=== PATIENT | female | born 1995 | race Caucasian/White ===

== ENCOUNTER 2020-12-02 00:43 | Outpatient (CLI) | payer OTHER, SELFPAY ==
[2020-12-02 18:38] LABS: SARS-CoV-2 RNA PCR Negative
== END 2020-12-02 00:44 | disposition home or self-care (01) ==
LOC: ANHCOVIDDT 00:43
PROVIDERS: PCP Family Medicine; Visit Provider Student in an Organized Health Care Education/Training Program
DX: Z01.818 Encounter for other preprocedural examination (principal); Z20.828 Contact with and (suspected) exposure to other viral communicable diseases
CPT/HCPCS: C9803; U0003

== ENCOUNTER 2020-12-05 01:57 | Day surgery (SDC) | payer OTHER, SELFPAY ==
[2020-12-01 13:29] VITALS: BMI 27.8
--- NOTE | 2020-12-05 08:48 | PM.IMHP ---
H&P: HPI History of Present Illness Date/Time: 12/05/20 08:48 Chief Complaint: spontaneous Narrative: Isa Vora is a 25 year old female who presents for suction D&C for management of missed . Pt initially had pelvic US for viability that showed a gestational sac with no embryo or pole. hormone levels were being monitored and plan was for repeat US. Pt then started having bright red vaginal bleeding and passing large clots. Beta HCG levels were found to be over 55,000. Follow up US still showed an enlarged GS with no parts or embryo despite beta HCG levels. Pt was given management options and opted for surgical management via D&C. Review of Systems Cardiovascular: Cardiovascular: Denies chest pain, Denies leg edema, Denies palpitations, Denies dyspnea and Denies dyspnea on exertion Respiratory: Respiratory: Denies cough, Denies dyspnea and Denies dyspnea on exertion Gastrointestinal: Gastrointestinal: Denies abdominal pain, Denies constipation, Denies diarrhea, Denies nausea and Denies vomiting Genitourinary: Genitourinary: Denies hematuria, Denies urinary frequency, Denies dysuria, Denies pelvic pain, Denies urinary incontinence and Denies vaginal discharge Neurologic: Reports system reviewed and no additional complaints, except as documented Psychiatric: Psychiatric: Reports no additional psychiatric complaints Endocrine: Endocrine: Denies palpitations PMFSH Social History Social History Smoking packs per day: 0.5 Smoking cigarettes per day: 10.0 Years smoked: 1 Smoking pack-years: 0.50 Smoking status: Former smoker Smoking end date: 10/02/20 Alcohol intake: current Drinks per week: 6 Substance use: never Living arrangements: with family Additional living arrangements comments: [facility] Spiritual care concerns: No Meds Home Medications and Allergies Home Medications Medication Instructions Recorded Confirmed Type levothyroxine 88 mcg FEEDING TUBE QAM 12/01/20 12/01/20 History sertraline 100 mg PO QAM 12/01/20 12/01/20 History Allergies Allergy/AdvReac Type Severity Reaction Status Date / Time No Known Allergies Allergy Unverified 12/01/20 13:28 Exam Const: General: no acute distress Eyes: EOM: EOMs intact bilaterally Neck: Neck: supple Thyroid: thyroid normal Chest: Breast/axilla inspection: normal inspection of the breasts Breast/axilla palpation: normal palpation of the breasts, normal palpation of the axillae and no axillary lymphadenopathy Resp: Effort & Inspection: normal respiratory effort Auscultation: clear to auscultation bilaterally Cardio: Rate: regular rate Rhythm: regular rhythm GI: Inspection: non-distended GI Palp: Yes Soft to palpation, No Tenderness to palpation present (GI) and No Guarding due to palpation present (GI) Auscultation: normal bowel sounds : General: No bladder normal to palpation External Female Exam: normal external appearance Speculum Exam - Vagina: normal vaginal discharge and No vaginal bleeding Speculum Exam - Cervix: nontender Bimanual exam- vagina & uterus: No bladder normal to palpation and No Cervical tenderness present OB/external & speculum: No vaginal bleeding Skin: General skin exam: normal color and no rashes or lesions noted Neuro: Cognition (Neuro): normal cognition Speech: normal speech Extrem: General: normal to inspection and no edema Psych: Mental Status: mental status grossly normal Affect: normal affect Assessment and Plan Assessment and plan (1) Spontaneous : Code(s): O03.9 - Complete or unspecified spontaneous without complication Status: Acute Assessment and Plan: 25 yo with missed AB pelvic US showed GS with no embryo or pole beta HCG levels last 55,000 Rh + pt started having bright red bleeding and passing clots pt has been monitoring bleeding plan today for surgical manageme
--- NOTE | 2020-12-05 09:05 | WPDHPUPDATE1 ---
History and Physical Update Update Date/Time: 12/05/20 09:05 History and Physical has been reviewed, including an updated exam of the patient. There are NO changes in the patient's condition. Risks, benefits, and alternatives have been discussed and questions answered. Patient agrees to proceed with procedure.
[2020-12-05 12:07] VITALS: BP 130/68; PULSE 77; RESP 16; TEMP 37.4; O2SAT 100
--- NOTE | 2020-12-05 12:32 | WPDANESEPPF ---
Anes - Initial Pre Proc Eval Procedure: Operation Date: 12/05/20 14:00 Proposed Procedures p Suction Dilatation and Curettage - Slick Salazar MD Date/Time: 12/05/20 12:32 Surgeon: Slick Salazar MD Pre Op Diagnosis: incomplete AB Patient Data Age: 25 Gender: F Height: 1.73 m Weight: 83 kg Allergies Allergy/AdvReac Type Severity Reaction Status Date / Time No Known Allergies Allergy Unverified 12/05/20 12:15 Home Medications Medication Instructions Recorded Confirmed Type levothyroxine 88 mcg PO QAM 12/01/20 12/05/20 History sertraline 100 mg PO QAM 12/01/20 12/05/20 History -zjjl fum-folic ac-om3 1 pkg PO DAILY 12/05/20 12/05/20 History [One Daily ] Patient hx anesthesia problems: none Family hx anesthesia problems: none [facility] Past Medical History Medical History (Updated 12/05/20 @ 12:32 by Bharat Ward DO) Anxiety Hypothyroidism Social History Social History Smoking packs per day: 0.5 Smoking cigarettes per day: 10.0 Years smoked: 1 Smoking pack-years: 0.50 Smoking status: Former smoker Smoking end date: 10/02/20 Alcohol intake: current Drinks per week: 6 Substance use: never Living arrangements: with family Additional living arrangements comments: [facility] Spiritual care concerns: No Anes - Eval Final PreProcedure Day of Procedure 12/05/20 12:32 Patient weight: overweight Heart: regular rate and rhythm Lungs: clear to auscultation and normal air movement Airway: Mallampati scale class 1 Neurological: alert and oriented Last oral intake: >/= 8 hours ASA classification: II Emergent: no Anesthetic plan: proceed Anesthesia type and monitoring: general GIVS and standard monitoring Informed Consent: The patient's anesthetic plan and its attendant risks and benefits were discussed with the patient/family/POA. Questions were solicited and answers provided to the satisfaction of the patient/family/POA.
[2020-12-05] MEDS: ACETAMINOPHEN 500 MG TABLET 1000 MG PO (12:41)
[2020-12-05] MEDS: DOXYCYCLINE HYCLATE 100 MG TABLET PO (12:42)
[2020-12-05] MEDS: LACTATED RINGERS 1,000 ML 30 ML IV CONT (12:50)
[2020-12-05] MEDS: LIDOCAINE HCL 1% LOCAL INJ 20 ML VIAL 10 ML INFILTRATE (13:38)
[2020-12-05] MEDS: KETOROLAC 30 MG/ML VIAL (*BKC) IV PUSH (13:40)
--- NOTE | 2020-12-05 13:49 | PM.PROC ---
Procedure Note - Detailed Date of procedure: 12/05/20 Pre-op diagnosis: incomplete AB Post-op diagnosis: same Procedure performed: Suction dilation and curettage Description of procedure: Antibiotics: Doxycycline Findings: uterus equal to dates, cervix not dilated, intrauterine MAB Complications: none Specimens: endometrial contents- products of conception EBL: 100 mL Indications: Patients was found to have an intrauterine MAB on pelvic US. After one weekend of expectant management the patient had not passed and POC. She elected for surgical management via Suction D&C. Procedure: The patient was taken to the operating room after a missed had been noted on on transvaginal ultrasound. Repeat bedside US confirmed an intrauterine missed . The risks, benefits and alternatives of the procedure were reviewed with the patient and informed consent was obtained. The patient was taken to the OR and anesthesia was noted to be adequate. The patient was placed in the dorsolithotomy position. Pelvic exam was performed with findings noted above. The patient was prepped and draped in the usual sterile fashion. Sterile speculum was placed in the vagina and the cervix was grasped with an Tenaculum clamp. Paracervical block was performed with 1% lidocaine. The cervix was dilated further to allow for passage of a 8mm suction curette. The 8mm suction curette was gently advanced to the fundus, suction was activated, and the tip was rotated while being withdrawn to clear the uterus of products. This suction process was repeated 4 additional times due to the quantity of material in the uterus. The sharp curette was introduced and advanced to the fundus to remove any remaining products. The suction curette was reintroduced one final time to ensure all products had been removed. The Tenaculum clamp was removed. Good hemostasis was noted. Instrument, sponge, and sharp counts were correct. Patient tolerated the procedure well and was taken to the recovery room in stable condition. Surgeon: Slick Salazar MD Estimated blood loss (mL): 100 Urine output (mL): 100 Drains: No Packing: No Pathology: yes (products of conception ) Complications: No immediate complications Condition: stable Disposition: PACU
[2020-12-05 13:50] VITALS: BP 123/66; PULSE 76; RESP 16; O2SAT 99
[2020-12-05] MEDS: fentaNYL CITRATE INJ (*CRX) 100 MCG/2 ML VIAL 25 MCG IV PUSH (13:56)
[2020-12-05 14:20] VITALS: BP 117/71; PULSE 78; RESP 18
[2020-12-05 14:38] VITALS: BP 116/69; PULSE 72; RESP 18
--- NOTE | 2020-12-05 14:53 | SUR.PHASEII ---
DR. SARKAR SPOKE WITH PATIENT AFTER SURGERY BUT SHE DIDN'T REMEMBER THE CONVERSATION. DR. SARKAR CALLED; HE WILL CALL HER LATER TODAY AND WILL CALL IN A PRESCRIPTION FOR THE 2ND DOXYCYCLINE DOSE.
== END 2020-12-05 14:47 | disposition home or self-care (01) ==
PROVIDERS: PCP Family Medicine; Visit Provider Student in an Organized Health Care Education/Training Program
PROC: (CPT 59812; principal; 2020-12-05 14:00)
DX: O03.4 Incomplete spontaneous abortion without complication (principal); E03.9 Hypothyroidism, unspecified; F41.9 Anxiety disorder, unspecified; Z87.891 Personal history of nicotine dependence
CPT/HCPCS: 59812; 88305; A9270; J1885; J2250; J2405; J2704; J3010; J7120

== ENCOUNTER 2021-04-28 09:52 | Emergency (ER) | payer OTHER, SELFPAY ==
[2021-04-28] VITALS (12 sets, daily range): BP systolic 124–143; BP diastolic 71–80; PULSE 66–88; RESP 12–21; O2SAT 100
--- NOTE | ~2021-04-28 | XR_ITS ---
EXAMINATION: XR chest 2V DATE: 04/28/2021 11:31 INDICATION: Chest tightness. Shallow breathing. TECHNIQUE: PA and lateral views of the chest were obtained. COMPARISON: Chest radiograph dated 05/13/2018 FINDINGS: The lungs remain clear with no focal airspace opacities, pulmonary edema, pleural effusion or pneumot horax. The cardiomediastinal silhouette is normal. Mild midthoracic spondylosis. IMPRESSION: 1. No acute cardiopulmonary disease. Reviewed, dictated and finalized at location [facility].
--- NOTE | 2021-04-28 11:05 | ECG_ITS ---
Measurements Intervals [place] Rate: 81 P: 56 TN: 137 QRS: 75 QRSD: 94 T: 23 QT: 319 QTc: 372 Interpretive Statements SINUS RHYTHM VENTRICULAR PREMATURE COMPLEX INCOMPLETE RIGHT BUNDLE BRANCH BLOCK NONSPECIFIC T-WAVE ABNORMALITY- INFERIOR LEADS BASELINE ARTIFACT- I, II, III, AVR, AVL, AVF BORDERLINE ECG Electronically Signed On 04-28-2021 12:17:00 CDT by Den Mcgee D.O.
[2021-04-28] MEDS: MAG HYDROX/AL HYDROX/SIMETH 30 ML UDC PO (11:17)
[2021-04-28 11:19] LABS: Basophils Absolute Auto 0.1 K/mm3 (0.0-0.1); Basophils Percent Auto 0.5 % (0.2-1.2); Eosinophils Absolute Auto 0.5 K/mm3 (0-0.3); Eosinophils Percent Auto 4.7 % (0-4.4); Hematocrit 41.2 % (37.0-47.0); Hemoglobin 13.7 g/dL (12.0-15.0); Immature Granulocyte Absolute 0.04 K/mm3 (0.00-0.031); Immature Granulocyte Percent A 0.4 % (0-0.5); Lymphocytes Absolute Auto 1.39 K/mm3 (0.9-3.2); Lymphocytes Percent Auto 13.3 % (18.3-44.2); Mean Corpuscular HGB Conc 33.3 g/dl (32-36); Mean Corpuscular Hemoglobin 31.4 pg (26-34); Mean Corpuscular Volume 94.5 fl (80-100); Mean Platelet Volume 11.8 fl (7.4-10.4); Monocytes Absolute Auto 0.9 K/mm3 (0.1-0.6); Monocytes Percent Auto 8.3 % (2.6-8.5); Neutrophils Absolute Auto 7.6 K/mm3 (1.3-6.7); Neutrophils Percent Auto 72.8 % (45.5-73.1); Platelet Count Result 206 k/mm3 (150-375); Red Blood Count 4.36 M/mm3 (4.2-5.4); Red Cell Distribution Width 12.9 % (11.5-14.5); White Blood Count 10.5 K/mm3 (4.5-10.0)
[2021-04-28] MEDS: LIDOCAINE HCL 2% VISC SOLN 15 ML UDC 20 ML PO (11:19)
[2021-04-28] MEDS: PANTOPRAZOLE SODIUM IV 40 MG VIAL IV PUSH (11:21)
[2021-04-28 11:27] LABS: Prothrombin Time 13.6 Seconds (11.1-14.7)
[2021-04-28 11:28] LABS: Partial Thromboplastin Time 28.2 SECONDS (22.3-36.8)
[2021-04-28 11:29] LABS: Alanine Aminotransferase 15 U/L (4-35); Albumin Level 4.8 g/dL (3.5-5.1); Alkaline Phosphatase 83 U/L (38-126); Anion Gap 10 mmol/L (8-16); Aspartate Amino Transferase 30 U/L (14-36); Bilirubin,Total 0.6 mg/dL (0.2-1.3); Blood Urea Nitrogen 9 mg/dL (7-17); Calcium 9.4 mg/dL (8.4-10.2); Carbon Dioxide 26 mmol/L (22-30); Chloride 103 mmol/L (98-107); Estimated CRCL calculation 93 ml/min; Estimated Glomerular Filt Rate > 60; Glucose 99 mg/dL (65-105); Potassium 3.5 mmol/L (3.4-5.0); Sodium 139 mmol/L (137-145)
[2021-04-28 11:39] LABS: Troponin I < 0.012 ng/mL (0.000-0.034)
[2021-04-28] MEDS: KETOROLAC 30 MG/ML VIAL (*BKC) IV PUSH (13:50)
--- NOTE | 2021-04-28 14:05 | ED.CHESTPAIN ---
HPI - Chest Pain General Chief Complaint: Chest Pain Stated Complaint: cp Time Seen by Provider: 04/28/21 10:57 Source: patient and RN notes reviewed Mode of arrival: ambulatory Limitations: no limitations History of Present Illness HPI narrative: Patient is a 75-year-old female who presents to emergency department for evaluation of mid chest discomfort described as a sharp stabbing pain that began this morning patient notes aching pain worse with inspiration and feeling short of breath patient notes she has had history of reflux for which she takes Zantac she took this morning with no relief patient denies other symptoms or complaints other than some mild discomfort in the abdomen Related Data Home Medications Medication Instructions Recorded Confirmed levothyroxine 88 mcg PO QAM 12/01/20 12/05/20 sertraline 100 mg PO QAM 12/01/20 12/05/20 One Daily 1 pkg PO DAILY 12/05/20 12/05/20 Allergies Allergy/AdvReac Type Severity Reaction Status Date / Time No Known Allergies Allergy Unverified 04/28/21 11:13 Review of Systems Review of Systems: All systems reviewed & are unremarkable except as noted in HPI and below PMFSH Past Medical History Medical History Anxiety Hypothyroidism Social History Social History Smoking packs per day: 0.5 Smoking cigarettes per day: 10.0 Years smoked: 1 Smoking pack-years: 0.50 Smoking status: Former smoker Smoking end date: 10/02/20 Alcohol intake: current Drinks per week: 6 Substance use: never [facility] Spiritual care concerns: No Exam Narrative: Exam Narrative: GENERAL: Well-appearing, well-nourished, and in no acute distress. HEAD: Normocephalic, atraumatic. EYES: PERRLA and EOMI. ENT: Nares clear, no rhinorrhea or epistaxis. Mucous membranes moist. CHEST: Clear to auscultation. No respiratory distress. No wheezes rales or rhonchi HEART: Regular rate and rhythm. No murmur heard. Normal peripheral pulses. ABDOMEN: Soft, nontender, nondistended. EXTREMITIES: Normal range of motion. No edema. SKIN: Warm, dry, no rash. NEURO: No focal deficits. Alert and oriented x3. PSYCH: Normal mood and affect. Course Course Emergency Course: Patient evaluated for chest pain no high risk changes in the evaluation did have some improvement with Protonix and GI cocktail potentially suggesting a GI component with history of reflux to support this patient low risk for cardiac risk factors will be discharged with primary referral and GI consult provided with reasons to return patient feels comfortable with this plan Vital Signs Vital signs: Vital Signs Pulse Rate 77 04/28/21 09:56 Respiratory Rate 19 04/28/21 09:56 Blood Pressure 143/77 H 04/28/21 09:56 Pulse Oximetry 100 04/28/21 09:56 Pulse Rate 67 04/28/21 13:01 Respiratory Rate 21 H 04/28/21 13:01 Blood Pressure 128/80 04/28/21 13:00 Pulse Oximetry 100 04/28/21 09:56 MDM - Chest Pain MDM Narrative Medical decision making narrative: Patients EKGs and labs are without significant high risk changes. Cardiac risk factors were reviewed. Patient is felt likely to be low risk for ACS and reasonable for further risk stratification testing as an outpatient. Pain was not sudden or maximal in onset without tearing or ripping. quality. No other signs or symptoms to suggest aortic dissection. A low-risk Wells criteria is noted. PE is felt to be unlikely. No pneumonia or URI symptoms were seen on evaluation today. Patient is felt to b reasonable for continued evaluation as an outpatient. Lab Data Result diagrams: 04/28/21 11:11 04/28/21 11:11 Labs: Lab Results 04/28/21 04/28/21 04/28/21 Range/Units 11:11 11:11 11:11 WBC 10.5 H (4.5-10.0) K/mm3 RBC 4.36 (4.2-5.4) M/mm3 Hgb 13.7 (12.0-15.0) g/dL Hct 41.2 (37.0-47.0) % MCV 94.5 (80-
[2021-04-28 14:06] LABS: Troponin I < 0.012 ng/mL (0.000-0.034)
== END 2021-04-28 14:53 | disposition home or self-care (01) ==
PROVIDERS: Emergency Medicine Emergency Medical Services; Emergency Provider Emergency Medicine; PCP Family Medicine
DX: R07.89 Other chest pain (principal); F41.9 Anxiety disorder, unspecified; E03.9 Hypothyroidism, unspecified; Z87.891 Personal history of nicotine dependence; I49.3 Ventricular premature depolarization; I45.10 Unspecified right bundle-branch block; R94.31 Abnormal electrocardiogram [ECG] [EKG]
CPT/HCPCS: 36415; 71046; 80053; 84484; 85025; 85610; 85730; 93005; 96374; 96375; 99284; A9270; C9113; J1885

== ENCOUNTER 2021-12-22 11:14 | Outpatient (CLI) | payer OTHER, SELFPAY ==
--- NOTE | ~2021-12-22 | XR_ITS ---
XR hysterosalpingogram DATE: 12/22/2021 12:21 INDICATION: Infertility workup TECHNIQUE: Fluoroscopy and spot images were performed during a hysterosalpingogram procedure performe d by Dr. Salazar. 0.4 minutes fluoroscopy time 4. Images COMPARISON: None FINDINGS: Normally shaped uterine cavity and normal caliber of the fallopian tubes. There is bilatera l fallopian tube patency and peritoneal spillage IMPRESSION: Normal hysterosalpingogram Reviewed, dictated and finalized at [facility]. Reviewed, dictated and finalized at location [facility]. DRIVER HELPER IMPRESSION: Normal hysterosalpingogram
== END 2021-12-22 11:15 | disposition home or self-care (01) ==
PROVIDERS: PCP Family Medicine; Visit Provider Student in an Organized Health Care Education/Training Program
DX: N97.9 Female infertility, unspecified (principal)
CPT/HCPCS: 58340; 74740; Q9966

== ENCOUNTER 2022-02-14 09:00 | Emergency (ER) | payer OTHER, BC, SELFPAY ==
[2022-02-14 09:06] VITALS: BP 144/75; PULSE 86; RESP 20; TEMP 37.5; O2SAT 99
--- NOTE | 2022-02-14 09:14 | ED.NAVMDI ---
HPI - Nausea/Vomiting/Diarrhea General Chief complaint: Nausea/Vomiting/Diarrhea Stated complaint: Dehydration during Time Seen by Provider: 02/14/22 09:02 History of Present Illness HPI Narrative: 26-year-old female who is 8 weeks presents the emergency room with vomiting. Patient states that she has experienced intermittent nausea and vomiting for the past 6 weeks. Patient is under the care of an GIS SOFTWARE ENGINEER, and has been unsuccessfully taking Zofran and promethazine for her symptoms. Patient denies abdominal pain, denies fever, denies vaginal bleeding. Related Data Home Medications Medication Instructions Recorded Confirmed levothyroxine 88 mcg PO QAM 12/01/20 12/05/20 sertraline 100 mg PO QAM 12/01/20 12/05/20 One Daily 1 pkg PO DAILY 12/05/20 12/05/20 Allergies Allergy/AdvReac Type Severity Reaction Status Date / Time No Known Allergies Allergy Verified 02/14/22 09:09 Review of Systems Review of Systems: CONSTITUTIONAL: Denies fever, chills, or sweats. EYES: Denies visual changes, redness, or discharge. ENT: Denies rhinorrhea, congestion, sore throat, or otalgia. CARDIOVASCULAR: Denies chest pain, palpitations, or edema. RESPIRATORY: Denies cough or dyspnea. GASTROINTESTINAL: Denies abdominal pain and diarrhea. Reports nausea and vomiting GENITOURINARY: Denies dysuria or hematuria. SKIN: Denies rash or itching. MUSCULOSKELETAL: Denies back pain, joint pain, or myalgia. NEUROLOGIC: Denies headache, numbness, dizziness, or weakness. PSYCHIATRIC: Denies anxiety or depression. PMFSH Past Medical History Medical History Anxiety Hypothyroidism Social History Social History Smoking packs per day: 0.5 Smoking cigarettes per day: 10.0 Years smoked: 1 Smoking pack-years: 0.50 Smoking status: Former smoker Smoking end date: 10/02/20 Alcohol intake: current Drinks per week: 6 Substance use: never Additional living arrangements comments: [facility] Spiritual care concerns: No Exam Narrative: GENERAL: Well-appearing, well-nourished, and in no acute distress. HEAD: Normocephalic, atraumatic. EYES: PERRLA and EOMI. ENT: Nares clear, no rhinorrhea or epistaxis. Mucous membranes dry. Oropharynx without tonsillar hypertrophy exudate or other lesions. Bilateral TMs pearly ling nonbulging NECK: Supple. No adenopathy or masses. No carotid bruits or JVD CHEST: Clear to auscultation. No respiratory distress. No wheezes rales or rhonchi HEART: Regular rate and rhythm. No murmur heard. Normal peripheral pulses. ABDOMEN: Soft, nontender, nondistended, normal active bowel sounds. EXTREMITIES: Normal range of motion. No edema. SKIN: Warm, dry, no rash. NEURO: No focal deficits. Alert and oriented x3. PSYCH: Normal mood and affect. Course Vital Signs Vital signs: Vital Signs Temperature 37.5 C 02/14/22 09:06 Pulse Rate 86 02/14/22 09:06 Respiratory Rate 20 02/14/22 09:06 Blood Pressure 144/75 H 02/14/22 09:06 Pulse Oximetry 99 02/14/22 09:06 Temperature 37.6 C H 02/14/22 10:08 Pulse Rate 62 02/14/22 10:08 Respiratory Rate 16 02/14/22 10:08 Blood Pressure 116/73 02/14/22 10:08 Pulse Oximetry 100 02/14/22 10:08 MDM - Nausea/Vomiting/Diarrhea MDM Narrative Medical decision making narrative: 26-year-old female presented the emergency room complaining of nausea vomiting. Patient is 8 weeks stating that she has had vomiting for the past 6 weeks intermittently. Patient was given 2 L of fluid and some Zofran, and states that her symptoms have largely resolved. We will have patient follow-up with her GIS SOFTWARE ENGINEER tomorrow. CBC and CMP were unremarkable. Urinalysis shows no concerns for urinary tract infection. Patient is likely experiencing hyperemesis due to . Medical Records Attestation: I reviewed the patient's medic
[2022-02-14 09:42] LABS: Basophils Percent Auto 0.4 % (0.2-1.2); Eosinophils Absolute Auto 0.5 K/mm3 (0-0.3); Eosinophils Percent Auto 5.8 % (0-4.4); Hemoglobin 12.9 g/dL (12.0-15.0); Immature Granulocyte Absolute 0.02 K/mm3 (0.00-0.031); Immature Granulocyte Percent A 0.3 % (0-0.5); Lymphocytes Absolute Auto 1.39 K/mm3 (0.9-3.2); Lymphocytes Percent Auto 17.4 % (18.3-44.2); Mean Corpuscular HGB Conc 33.9 g/dl (32-36); Mean Corpuscular Hemoglobin 31.5 pg (26-34); Mean Corpuscular Volume 92.7 fl (80-100); Mean Platelet Volume 11.6 fl (7.4-10.4); Monocytes Absolute Auto 0.7 K/mm3 (0.1-0.6); Monocytes Percent Auto 9.3 % (2.6-8.5); Neutrophils Absolute Auto 5.4 K/mm3 (1.3-6.7); Neutrophils Percent Auto 66.8 % (45.5-73.1); Platelet Count Result 222 k/mm3 (150-375); Red Cell Distribution Width 12.4 % (11.5-14.5)
[2022-02-14 09:48] LABS: Add Urine Microscopic? YES; Appearance Urine Cloudy (Clear); Bacteria Urine Trace /hpf; Bilirubin Urine 1+ (Negative); Blood Urine Negative (Negative); Color Urine Amber (Yellow); Glucose Urine UA Negative (Negative); Ketones Urine Trace mg/dL (Negative); Leukocyte Esterase Ur Negative LEU/UL (Negative); Mucus Urine Heavy /lpf; Nitrate Urine Negative (Negative); Protein Urine 2+ mg/dL (Negative); Squamous Epithelial Cell Urine Many /hpf (Few)
[2022-02-14 09:49] LABS: Specific Grav Ur 1.033 (1.001-1.035)
[2022-02-14] MEDS: ONDANSETRON INJ 4 MG/2 ML VIAL IV PUSH (09:51)
[2022-02-14] MEDS: SODIUM CHLORIDE 0.9% IV 1,000 ML 999 ML IV CONT ×2 (09:51→11:09)
[2022-02-14 09:53] LABS: Alanine Aminotransferase 17 U/L (4-35); Albumin Level 4.6 g/dL (3.5-5.1); Alkaline Phosphatase 54 U/L (38-126); Anion Gap 9 mmol/L (8-16); Aspartate Amino Transferase 25 U/L (14-36); Bilirubin,Total 0.4 mg/dL (0.2-1.3); Blood Urea Nitrogen 10 mg/dL (7-17); Calcium 9.3 mg/dL (8.4-10.2); Carbon Dioxide 26 mmol/L (22-30); Chloride 102 mmol/L (98-107); Estimated CRCL calculation 104 ml/min; Estimated Glomerular Filt Rate > 60; Glucose 94 mg/dL (65-110); Potassium 3.7 mmol/L (3.4-5.0); Sodium 137 mmol/L (137-145)
[2022-02-14 10:08] VITALS: BP 116/73; PULSE 62; RESP 16; TEMP 37.6; O2SAT 100
[2022-02-14 12:04] VITALS: BP 120/62; PULSE 81; RESP 16; O2SAT 100
== END 2022-02-14 12:30 | disposition home or self-care (01) ==
PROVIDERS: Emergency Provider Nurse Practitioner Family; PCP Family Medicine
DX: O21.0 Mild hyperemesis gravidarum (principal); Z3A.08 8 weeks gestation of pregnancy
CPT/HCPCS: 36415; 80053; 81001; 85025; 96361; 96374; 99284; J2405; J7030

== ENCOUNTER 2022-06-21 09:32 | Observation (INO) | payer OTHER, BC, SELFPAY ==
[2022-06-21] VITALS (10 sets, daily range): BP systolic 107–129; BP diastolic 54–73; PULSE 76–94; TEMP 36.4; BMI 29.2
--- NOTE | 2022-06-21 10:05 | OBADM ---
This patient, Isa Vora, admitted to the OB room 116 for observation for c/o feeling lightheaded, dizzy, weak, and shaking knees with walking since yesterday. Patient/family oriented to hospital policies and general routines including ID bracelet, bed and alarms, visiting hours, pain management, procedures, bathroom and other care routines, personal items, smoking policy, room service/diet, and visiting hours. Patient/Family are encouraged to report perceived risks to care and to ask questions if they do not understand what they are told or what they should do.
[2022-06-21] MEDS: DEXTROSE 5%/LACTATED RINGERS 1,000 ML 999 ML IV CONT (10:30)
[2022-06-21 10:44] LABS: Basophils Percent Auto 0.2 % (0.2-1.2); Eosinophils Absolute Auto 0.5 K/mm3 (0-0.3); Eosinophils Percent Auto 3.7 % (0-4.4); Hematocrit 33.7 % (37.0-47.0); Hemoglobin 11.2 g/dL (12.0-15.0); Immature Granulocyte Absolute 0.09 K/mm3 (0.00-0.031); Immature Granulocyte Percent A 0.7 % (0-0.5); Lymphocytes Absolute Auto 1.38 K/mm3 (0.9-3.2); Lymphocytes Percent Auto 10.7 % (18.3-44.2); Mean Corpuscular HGB Conc 33.2 g/dl (32-36); Mean Corpuscular Volume 93.4 fl (80-100); Mean Platelet Volume 11.2 fl (7.4-10.4); Monocytes Absolute Auto 0.8 K/mm3 (0.1-0.6); Monocytes Percent Auto 6.1 % (2.6-8.5); Neutrophils Absolute Auto 10.2 K/mm3 (1.3-6.7); Neutrophils Percent Auto 78.6 % (45.5-73.1); Platelet Count Result 187 k/mm3 (150-375); Red Blood Count 3.61 M/mm3 (4.2-5.4); Red Cell Distribution Width 13.1 % (11.5-14.5); White Blood Count 12.9 K/mm3 (4.5-10.0)
[2022-06-21 10:49] LABS: Appearance Urine Cloudy (Clear); Bilirubin Urine Negative (Negative); Color Urine Yellow (Yellow); Glucose Urine UA Negative (Negative); Ketones Urine Trace mg/dL (Negative); Leukocyte Esterase Ur Negative LEU/UL (NEGATIVE); Nitrate Urine Negative (Negative); Protein Urine 1+ mg/dL (Negative); Specific Grav Ur >= 1.030 (1.001-1.035); Urobilinogen Urine 0.2 mg/dL (<2.0)
[2022-06-21 10:53] LABS: Alanine Aminotransferase 14 U/L (6-35); Albumin Level 3.7 g/dL (3.5-5.1); Alkaline Phosphatase 77 U/L (38-126); Anion Gap 7 mmol/L (8-16); Aspartate Amino Transferase 20 U/L (14-36); Bilirubin,Total 0.4 mg/dL (0.2-1.3); Blood Urea Nitrogen 6 mg/dL (7-17); Calcium 8.4 mg/dL (8.4-10.2); Carbon Dioxide 22 mmol/L (22-30); Chloride 106 mmol/L (98-107); Estimated Glomerular Filt Rate > 60; Glucose 83 mg/dL (65-110); Potassium 3.8 mmol/L (3.4-5.0); Sodium 135 mmol/L (137-145)
[2022-06-21 10:53] LABS: Add Urine Microscopic? YES; Blood Urine Trace-Intact (Negative)
--- NOTE | 2022-06-21 11:36 | P.PNOB_ITS ---
OB - Triage/Final Diagnosis Visit Information Date of evaluation: 06/21/22 Reason for evaluation: other (fatigue, weakness) Comments/Additional reasons for admission: I have assessed the risk for this patient, Isa Izzy Ryanmaikel, and determined that she would benefit from observation care. Evaluation Laboratory results: Laboratory Tests 06/21/22 06/21/22 06/21/22 10:22 10:22 10:36 WBC 12.9 H RBC 3.61 L Hgb 11.2 L Hct 33.7 L MCV 93.4 MCH 31.0 MCHC 33.2 RDW 13.1 Plt Count 187 MPV 11.2 H Immature Gran % (Auto) 0.7 H Neut % (Auto) 78.6 H Lymph % (Auto) 10.7 L [place] % (Auto) 6.1 Eos % (Auto) 3.7 Baso % (Auto) 0.2 Lymph # (Auto) 1.38 [place] # (Auto) 0.8 H Eos # (Auto) 0.5 H Baso # (Auto) 0.0 Abs Immat Gran (auto) 0.09 H Absolute Neuts (auto) 10.2 H Absolute Nucleated RBC 0.0 Nucleated RBC % 0.0 Sodium 135 L Potassium 3.8 Chloride 106 Carbon Dioxide 22 Anion Gap 7 L BUN 6 L Creatinine 0.50 L Estim Creat Clear Calc Not Reportable Estimated GFR > 60 Glucose 83 Calcium 8.4 Total Bilirubin 0.4 AST 20 ALT 14 Alkaline Phosphatase 77 Total Protein 7.0 Albumin 3.7 TSH 3.070 Urine Color Yellow Urine Appearance Cloudy H Urine pH 6.0 Ur Specific [place] >= 1.030 Urine Protein 1+ H Urine Glucose (UA) Negative Urine Ketones Trace Ur Blood (Man) Trace-intact Urine Nitrate Negative Urine Bilirubin Negative Urine Urobilinogen 0.2 Ur Leukocyte Esterase Negative Vital signs: Vital Signs - 24 hr 06/21/22 10:04 06/21/22 10:16 06/21/22 10:30 Pulse Rate 87 94 85 Blood Pressure 121/66 107/65 116/71 Oxygen Delivery 06/21/22 10:46 06/21/22 11:01 06/21/22 11:16 Pulse Rate 82 80 81 Blood Pressure 121/64 118/65 129/54 L Oxygen Delivery 06/21/22 11:25 06/21/22 11:26 06/21/22 11:27 Pulse Rate 76 80 81 Blood Pressure 124/70 121/73 122/65 Oxygen Delivery 06/21/22 10:05 Pulse Rate Blood Pressure Oxygen Delivery Room Air
[2022-06-21 11:51] LABS: Squamous Epithelial Cell Urine Many /hpf (Few)
[2022-06-21 11:52] LABS: Calcium Oxalate Crystals Urine Present /hpf
[2022-06-21 11:53] LABS: Mucus Urine Rare /lpf
[2022-06-21 11:54] LABS: Bacteria Urine Trace /hpf
== END 2022-06-21 12:16 | disposition home or self-care (01) ==
PROVIDERS: Admitting Provider Student in an Organized Health Care Education/Training Program; PCP Family Medicine; Visit Provider Student in an Organized Health Care Education/Training Program
DX: O26.812 Pregnancy related exhaustion and fatigue, second trimester (principal); Z3A.26 26 weeks gestation of pregnancy
CPT/HCPCS: 36415; 80053; 81001; 84443; 85025; 96361; 96365; G0378; G0379; J7121

== ENCOUNTER 2022-07-27 12:12 | Observation (INO) | payer OTHER, BC, SELFPAY ==
[2022-07-27 12:42] VITALS: BP 122/74; PULSE 105; TEMP 37.2
[2022-07-27 12:57] VITALS: BMI 30.8
--- NOTE | 2022-07-27 12:57 | OBADM ---
This patient, Isa Vora, admitted to the OB room OB Post 112 for observation. Patient/family oriented to hospital policies and general routines including ID bracelet, bed and alarms, visiting hours, pain management, procedures, bathroom and other care routines, personal items, smoking policy, room service/diet, and visiting hours. Patient/Family are encouraged to report perceived risks to care and to ask questions if they do not understand what they are told or what they should do.
[2022-07-27 13:01] VITALS: BP 118/67; PULSE 91
[2022-07-27 13:14] LABS: Appearance Urine Slightly Cloudy (Clear); Bilirubin Urine Negative (Negative); Blood Urine Negative (Negative); Color Urine Yellow (Yellow); Glucose Urine UA Negative (Negative); Ketones Urine Negative (Negative); Leukocyte Esterase Ur Negative LEU/UL (Negative); Nitrate Urine Negative (Negative); Protein Urine Negative (Negative); Specific Grav Ur 1.015 (1.001-1.035); Urobilinogen Urine 0.2 mg/dL (<2.0)
[2022-07-27 13:29] LABS: Bacteria Urine Trace /hpf; Mucus Urine Rare /lpf; RBC Urine 0-2 /hpf (0-2); Squamous Epithelial Cell Urine Many /hpf (Few)
[2022-07-27 13:31] LABS: Add Urine Microscopic? YES
[2022-07-27 14:01] VITALS: BP 135/65; PULSE 97
[2022-07-27 15:01] VITALS: BP 121/63; PULSE 95
--- NOTE | 2022-08-21 11:40 | PM.OBTRLD ---
OB - Triage/Final Diagnosis Visit Information Comments/Additional reasons for admission: I have assessed the risk for this patient, Isa Vora, and determined that she would benefit from observation care. Evaluation Laboratory results: Laboratory Tests 07/27/22 12:43 Urine Color Yellow Urine Appearance Slightly cloudy Urine pH 6.0 Ur Specific [place] 1.015 Urine Protein Negative Urine Glucose (UA) Negative Urine Ketones Negative Ur Blood (Man) Negative Urine Nitrate Negative Urine Bilirubin Negative Urine Urobilinogen 0.2 Leukocyte Esterase Rfl Negative Urine RBC 0-2 Urine WBC 4-6 H Ur Squamous Epith Cells Many H Urine Bacteria Trace Urine Mucus Rare Final Diagnosis (1) Cramping affecting , antepartum: Code(s): O26.899 - Other specified related conditions, unspecified trimester; R10.9 - Unspecified abdominal pain Status: Acute
== END 2022-07-27 15:15 | disposition home or self-care (01) ==
PROVIDERS: Admitting Provider Obstetrics & Gynecology; PCP Family Medicine; Visit Provider Obstetrics & Gynecology
DX: O26.893 Other specified pregnancy related conditions, third trimester (principal); R10.9 Unspecified abdominal pain; Z3A.31 31 weeks gestation of pregnancy
CPT/HCPCS: 81001; G0378; G0379

== ENCOUNTER 2022-09-20 06:27 | Inpatient (IN) | payer OTHER, BC, SELFPAY ==
[2022-09-20] VITALS (175 sets, daily range): BP systolic 95–151; BP diastolic 56–120; PULSE 52–142; RESP 18; TEMP 36.3–36.8; O2SAT 76–100; BMI 32.8
--- NOTE | 2022-09-20 00:37 | PM.IMHP ---
H&P: HPI History of Present Illness Date/Time: 09/20/22 00:37 Chief Complaint: Induction of labor term Narrative: this is a 27 year 2 para 0 whose last menstrual period was 12/20/2021, EDC is 09/26/2022, presents at 39 and half weeks gestation for induction of labor. She has history of hypothyroidism and anxiety depression. Her cervix is favorable. Her blood pressures were mildly elevated but she has a 7 week ultrasound confirming dates with negative group B strep is admitted for induction. [facility] Past Medical History Medical History Anxiety Hypothyroidism Family History Family History Other Patient denies significant medical history Social History Social History Smoking packs per day: 0.5 Smoking cigarettes per day: 10.0 Years smoked: 1 Smoking pack-years: 0.50 Smoking status: Former smoker Smoking end date: 10/02/20 Alcohol intake: current Drinks per week: 6 Substance use: never Additional living arrangements comments: [facility] Spiritual care concerns: No Meds Home Medications and Allergies Home Medications Medication Instructions Recorded Confirmed Type levothyroxine 88 mcg tablet 88 mcg PO QAM 12/01/20 06/21/22 History acetaminophen 500 mg tablet 500 mg PO Q6H PRN pain #30 tabs 12/05/20 06/21/22 Rx (Tylenol Extra Strength) vits 75-iron 28 mg-folic 1 pkg PO DAILY 12/05/20 06/21/22 History acid 800 mcg-omega3 440 mg oral pack (One Daily ) buspirone 5 mg tablet 5 mg PO BID 06/21/22 06/21/22 History fluoxetine 40 mg capsule 40 mg PO HS 06/21/22 06/21/22 History Allergies Allergy/AdvReac Type Severity Reaction Status Date / Time No Known Allergies Allergy Verified 02/14/22 09:09 Exam Const: General: cooperative, healthy appearing and comfortable Nutritional Appearance: average body habitus Orientation/consciousness: oriented to person, oriented to place and oriented to time HENMT: Head: normal to inspection Resp: Effort & Inspection: normal respiratory effort Cardio: Rate: regular rate Rhythm: regular rhythm Heart sounds: S1 normal heart sound present and S2 normal heart sound present GI: Inspection: normal to inspection Auscultation: normal bowel sounds : External Female Exam: normal external appearance Speculum Exam - Vagina: normal appearance of the vagina Speculum Exam - Cervix: normal appearance of the cervix ( Cervix 2 /-1) Assessment and Plan Assessment and plan (1) Term : Code(s): Z34.90 - Encounter for supervision of normal , unspecified, unspecified trimester Status: Acute Plan medical induction of labor
--- NOTE | 2022-09-20 06:47 | PM.OBPNLAB ---
Pain Control Date/time seen: 09/20/22 06:47 Pain control: tolerating well Pelvic Exam Dilation (cm): 2 Effacement (%): 80 station: -1 Amniotic membrane status: Ruptured (no fluid seen)
[2022-09-20 07:18] LABS: Basophils Percent Auto 0.3 % (0.2-1.2); Eosinophils Absolute Auto 0.6 K/mm3 (0-0.3); Eosinophils Percent Auto 4.1 % (0-4.4); Hematocrit 36.6 % (37.0-47.0); Hemoglobin 12.4 g/dL (12.0-15.0); Immature Granulocyte Absolute 0.11 K/mm3 (0.00-0.031); Immature Granulocyte Percent A 0.7 % (0-0.5); Lymphocytes Absolute Auto 2.15 K/mm3 (0.9-3.2); Lymphocytes Percent Auto 14.1 % (18.3-44.2); Mean Corpuscular HGB Conc 33.9 g/dl (32-36); Mean Corpuscular Hemoglobin 30.8 pg (26-34); Mean Corpuscular Volume 90.8 fl (80-100); Mean Platelet Volume 12.5 fl (7.4-10.4); Monocytes Absolute Auto 1.2 K/mm3 (0.1-0.6); Monocytes Percent Auto 7.6 % (2.6-8.5); Neutrophils Absolute Auto 11.2 K/mm3 (1.3-6.7); Neutrophils Percent Auto 73.2 % (45.5-73.1); Platelet Count Result 204 k/mm3 (150-375); Red Blood Count 4.03 M/mm3 (4.2-5.4); Red Cell Distribution Width 13.1 % (11.5-14.5); White Blood Count 15.3 K/mm3 (4.5-10.0)
[2022-09-20] MEDS: LACTATED RINGERS 1,000 ML 125 ML IV CONT ×2 (07:25→09:47)
[2022-09-20] MEDS: OXYTOCIN 30 UNITS/NS 500 ML 30 UNITS/500 ML BAG 6 UNITS IV CONT (07:26)
--- NOTE | 2022-09-20 09:39 | WPDANESEPP ---
Anes - Eval Pre Procedure Procedure: labor epidural Date/Time: 09/20/22 09:39 Preop Diagnosis: labor pain Pre Op Diagnosis: iol Patient Data Age: 27 Gender: F Height: 1.73 m Weight: 98 kg Last Vital Signs Temp 36.6 C 09/20/22 09:00 Pulse 91 09/20/22 08:31 BP 138/89 09/20/22 08:31 O2 Del Method Room Air 09/20/22 07:29 Allergies Allergy/AdvReac Type Severity Reaction Status Date / Time No Known Allergies Allergy Verified 02/14/22 09:09 Home Medications Medication Instructions Recorded Confirmed Type levothyroxine 88 mcg tablet 88 mcg PO QAM 12/01/20 09/20/22 History acetaminophen 500 mg tablet 500 mg PO Q6H PRN pain #30 tabs 12/05/20 09/20/22 Rx (Tylenol Extra Strength) vits 75-iron 28 mg-folic 1 pkg PO DAILY 12/05/20 09/20/22 History acid 800 mcg-omega3 440 mg oral pack (One Daily ) buspirone 5 mg tablet 5 mg PO BID 06/21/22 09/20/22 History fluoxetine 40 mg capsule 40 mg PO HS 06/21/22 09/20/22 History Laboratory Tests 09/20/22 09/20/22 09/20/22 06:55 06:55 06:56 WBC 15.3 K/mm3 H K/mm3 (4.5-10.0) RBC 4.03 M/mm3 L M/mm3 (4.2-5.4) Hgb 12.4 g/dL g/dL (12.0-15.0) Hct 36.6 % L % (37.0-47.0) MCV 90.8 fl fl (80-100) MCH 30.8 pg pg (26-34) MCHC 33.9 g/dl g/dl (32-36) RDW 13.1 % % (11.5-14.5) Plt Count 204 k/mm3 k/mm3 (150-375) MPV 12.5 fl H fl (7.4-10.4) Immature Gran % (Auto) 0.7 % H % (0-0.5) Neut % (Auto) 73.2 % H % (45.5-73.1) Lymph % (Auto) 14.1 % L % (18.3-44.2) [place] % (Auto) 7.6 % % (2.6-8.5) Eos % (Auto) 4.1 % % (0-4.4) Baso % (Auto) 0.3 % % (0.2-1.2) Lymph # (Auto) 2.15 K/mm3 K/mm3 (0.9-3.2) [place] # (Auto) 1.2 K/mm3 H K/mm3 (0.1-0.6) Eos # (Auto) 0.6 K/mm3 H K/mm3 (0-0.3) Baso # (Auto) 0.0 K/mm3 K/mm3 (0.0-0.1) Abs Immat Gran (auto) 0.11 K/mm3 H K/mm3 (0.00-0.031) Absolute Neuts (auto) 11.2 K/mm3 H K/mm3 (1.3-6.7) Absolute Nucleated RBC 0.0 K/mm3 K/mm3 (0.0-0.012) Nucleated RBC % 0.0 % % (0.0-0.2) RPR Pending Blood Type A Positive Antibody Screen Negative Patient hx anesthesia problems: none Family hx anesthesia problems: none Results Review: All pre-operative results and documents have been reviewed as part of the pre-operative evaluation. [facility] Past Medical History Medical History Anxiety Hypothyroidism Family History Family History Other Patient denies significant medical history Social History Social History Smoking packs per day: 0.5 Smoking cigarettes per day: 10.0 Years smoked: 1 Smoking pack-years: 0.50 Smoking status: Never smoker Smoking end date: 10/02/20 Alcohol intake: current Drinks per week: 6 Substance use: never Additional living arrangements comments: [facility] Spiritual care concerns: No Exam Day of Procedure 09/20/22 09:39
[2022-09-20] MEDS: fentaNYL CITRATE INJ (*CRX) 100 MCG/2 ML VIAL IV PUSH (09:48)
--- NOTE | 2022-09-20 12:23 | PM.OBPNLAB ---
Pain Control Date/time seen: 09/20/22 12:23 Pain control: tolerating well and epidural Pelvic Exam Dilation (cm): 4 Effacement (%): 80 station: -1 Amniotic membrane status: Ruptured (no fluid seen)
--- NOTE | 2022-09-20 16:42 | PM.OBPNLAB ---
Pain Control Date/time seen: 09/20/22 16:42 Pain control: tolerating well and epidural Pelvic Exam Dilation (cm): 10 Effacement (%): 100 station: +2 Amniotic membrane status: Ruptured (no fluid seen)
--- NOTE | 2022-09-20 17:15 | PM.OBPRVD ---
OB - Delivery Note Procedure Delivery date: 09/20/22 Events: Elective Induction of Labor Induction method: AROM Delivery augmentation: Pitocin Delivery monitor: External FHT Episiotomy description: None Laceration Description: Perineal - 1st Degree Delivery repair: vicryl Specimen: No Quantitative Blood Loss (ml): 59 Anesthesia type: Epidural Disposition: Floor [place] Baby Date of : 09/20/22 Time of : 16:59 Weeks of gestation at delivery: 39 Weight (pounds): 8 Weight (ounces): 4 presentation: vertex position: Right Occiput Anterior Placenta delivery description: Spontaneous Cord Vessel Description: 3 Vessels score one minute: 9 score five minutes: 9
[2022-09-20] MEDS: IBUPROFEN 600 MG TABLET PO (19:24)
[2022-09-20] MEDS: BENZOCAINE 20% AER SPR (*SP) 56 GM CAN 1 SPRAY TOPICAL (19:25)
[2022-09-20] MEDS: WITCH HAZEL 40 PADS 1 PAD TOPICAL (19:25)
--- NOTE | 2022-09-20 19:32 | OBPPTRN ---
Patient transferred to post room #286 via W/C. Support person present. Oriented to unit, room, information board, rooming in, admission packet and security measures. Patient verbalizes understanding.
[2022-09-20] MEDS: ACETAMINOPHEN 325 MG TABLET 650 MG PO (23:51)
[2022-09-21 04:10] VITALS: BP 136/74; PULSE 79; RESP 18; TEMP 36.6
[2022-09-21] MEDS: IBUPROFEN 600 MG TABLET PO ×3 (04:31→20:13)
[2022-09-21 05:24] LABS: Hematocrit 31.8 % (37.0-47.0); Hemoglobin 10.7 g/dL (12.0-15.0)
--- NOTE | 2022-09-21 07:23 | P.PNOB_ITS ---
OB - PN: Subj Subjective Date/time seen: 09/21/22 07:23 Patient comments: no complaints and pain well controlled baby status: doing well and nursing well OB - PN: Obj Data Labs CBC & Chem 7: 09/21/22 04:13 Labs: Laboratory Results - last 24 hr 09/20/22 09/20/22 09/21/22 06:55 06:55 04:13 WBC 15.3 H RBC 4.03 L Hgb 12.4 10.7 L Hct 36.6 L 31.8 L MCV 90.8 MCH 30.8 MCHC 33.9 RDW 13.1 Plt Count 204 MPV 12.5 H Immature Gran % (Auto) 0.7 H Neut % (Auto) 73.2 H Lymph % (Auto) 14.1 L [place] % (Auto) 7.6 Eos % (Auto) 4.1 Baso % (Auto) 0.3 Lymph # (Auto) 2.15 [place] # (Auto) 1.2 H Eos # (Auto) 0.6 H Baso # (Auto) 0.0 Abs Immat Gran (auto) 0.11 H Absolute Neuts (auto) 11.2 H Absolute Nucleated RBC 0.0 Nucleated RBC % 0.0 Blood Type A Positive Antibody Screen Negative OB - PN A/P Plan day: 1 Plan: routine care Time Spent With Patient Time: Total time spent is greater than 50% in coordination of care (as documented) at patient's floor/unit and/or counseling patient: Time with patient: less than 15 minutes Exam Const: General: cooperative, healthy appearing and comfortable Nutritional Appearance: average body habitus Orientation/consciousness: oriented to person, oriented to place and oriented to time HENMT: Head: normal to inspection Resp: Effort & Inspection: normal respiratory effort GI: Inspection: normal to inspection ( Fundus firm below the umbilicus)
--- NOTE | 2022-09-21 07:24 | PM.DS ---
DS: Admitting Diagnosis Discharge Date 09/22/2022 Admitting Diagnosis term DS: Discharge Diagnosis Discharge Diagnosis (1) Term : Code(s): Z34.90 - Encounter for supervision of normal , unspecified, unspecified trimester Status: Acute DS: Summary Hospital Course Hospital Course: The patient was admitted for induction of labor at term she underwent spontaneous vaginal delivery. Her course was unremarkable she was up, voiding without difficulty, and vagina without complaints. Time Spent with Patient Time attestation: Total time spent providing and/or coordinating discharge services: Exam Const: General: cooperative, healthy appearing and comfortable Nutritional Appearance: average body habitus Orientation/consciousness: oriented to person, oriented to place and oriented to time HENMT: Head: normal to inspection Resp: Effort & Inspection: normal respiratory effort GI: Inspection: normal to inspection ( fundus firm well below the umbilicus) DS: Data Data Completed and Pending Labs on day of discharge: Labs from last 24 hours 09/21/22 09/20/22 09/20/22 04:13 06:55 06:55 WBC 15.3 H RBC 4.03 L Hgb 10.7 L 12.4 Hct 31.8 L 36.6 L MCV 90.8 MCH 30.8 MCHC 33.9 RDW 13.1 Plt Count 204 MPV 12.5 H Immature Gran % (Auto) 0.7 H Neut % (Auto) 73.2 H Lymph % (Auto) 14.1 L [place] % (Auto) 7.6 Eos % (Auto) 4.1 Baso % (Auto) 0.3 Lymph # (Auto) 2.15 [place] # (Auto) 1.2 H Eos # (Auto) 0.6 H Baso # (Auto) 0.0 Abs Immat Gran (auto) 0.11 H Absolute Neuts (auto) 11.2 H Absolute Nucleated RBC 0.0 Nucleated RBC % 0.0 Blood Type A Positive Antibody Screen Negative Discharge Plan Discharge Attending physician on discharge: Gian Sierra Discharging Clinician: Gian Sierra Patient Disposition: Home, Self-Care Activity: may shower, no straining and pelvic rest Diet: heart healthy Wound Care Instructions: follow printed instructions Discharge Instructions: Education: Mom and Baby Guide Given to: Mother Follow-Up: Call your delivering provider's office for an appointment to be seen in: 4 Weeks Mom and baby should come to the [facility] for the follow-up appointment. Appointment Date/Time: September 24, 2022 at 2:30 am What to expect at your follow-up visit: Physical Assessment Call [phone] if you are unable to keep your appointment time. BREAST CARE: * Wear a snug supportive bra. * For engorgement discomfort: Bottle Feeding: * May apply ice packs PERINEAL CARE: * Until bleeding stops, use your aundrea bottle after urinating * Change your pad frequently throughout the day * You may take sitz baths several times a day (fill your bathtub with warm water and soak for 20 minutes.) Do NOT bathe in the water * No tub baths until seen by your physician - You may shower ACTIVITY: * Rest as much as possible. * Do not exercise or lift anything heavier than your baby (such as laundry or other children.) * Avoid stairs or driving as much as possible. * Do not put anything into the vagina. No douching, tampons, or sexual activity until seen by physician. NOTIFY PHYSICIAN IF YOU HAVE ANY QUESTIONS OR IF ANY OF THE FOLLOWING SYMPTOMS OCCUR: * If your perineum becomes red, swollen, or more painful than what you have experienced in the hospital. * If your vaginal bleeding becomes foul smelling. * If your vaginal bleeding becomes more heavy than a period or if your bleeding changes from pink to bright red. However, you may pass an occasional walnut-sized clot once or twice for the first week . * If you experience a sharp, shooting pain in you calves. * If you discover a hard, reddened area on your breast or if you experience flu-like symptoms. DIET: * Eat regular, well-balanced meals. * Drink plenty of fluids daily. Stand Alone Forms: General
[2022-09-21 08:00] VITALS: PULSE 78; RESP 16; O2SAT 99
--- NOTE | 2022-09-21 08:05 | WPDANLDPN2 ---
Anes-Prog Note L&D Date/Time: 09/21/22 08:05 Comfortable throughout: labor and delivery Neuraxial method: epidural Epidural/Spinal procedure site: clean & non-tender Neuro status: Neuro function grossly intact. Cardiovascular status: normal Respiratory status: normal Airway patency: baseline Mental status: baseline Post-Op hydration status: normal Vital Signs: Last Vital Signs Temp 36.6 C 09/21/22 04:10 Pulse 79 09/21/22 04:10 Resp 18 09/21/22 04:10 BP 136/74 09/21/22 04:10 Pulse Ox 99 09/20/22 19:24 O2 Del Method Room Air 09/20/22 20:00 Pain score (VAS): 2 I/O: Intake & Output 09/20/22 09/21/22 09/21/22 23:59 07:59 15:59 Intake Total 2300 Output Total 545 Balance 1755 Post-procedural complaints: none Patient feedback: Patient satisfied with anesthetic care.
[2022-09-21 08:20] VITALS: BP 130/70; PULSE 78; RESP 16; TEMP 36.6; O2SAT 99
[2022-09-21] MEDS: MULTIVIT/MIN/PREN/FOL AC/IRON TABLET 1 TAB PO (08:41)
[2022-09-21] MEDS: DOCUSATE SODIUM 100 MG CAPSULE PO ×2 (08:41→20:13)
[2022-09-21 10:18] LABS: Rapid Plasma Reagin Non-Reactive (NonReactive)
--- NOTE | 2022-09-21 11:47 | PC.NURSE ---
[id number] Introductions were made, then consulted with patient to assess needs related to . Mother led the conversation with her?plans to feed?her infant with the formula bottle. Mother is unsure if she will pump to supply human milk or encourage milk cessation at this time. Resources provided for inpatient and outpatient services using a resource guide and mom/baby guide. Mother voiced understanding of information and mother has questions. Questions were answered and discussion was had regarding unsafe use of marijuana during and with . Reported to primary RN.
[2022-09-21 12:18] VITALS: BP 128/80; PULSE 86; RESP 16; TEMP 36.3; O2SAT 99
[2022-09-21 16:00] VITALS: BP 128/89; PULSE 86; RESP 16; TEMP 36.9; O2SAT 100
[2022-09-21 20:00] VITALS: BP 135/79; PULSE 86; RESP 18; TEMP 36.9; O2SAT 99
[2022-09-22] MEDS: IBUPROFEN 600 MG TABLET PO (05:25)
[2022-09-22 09:20] VITALS: BP 122/76; PULSE 87; RESP 16; TEMP 36.7; O2SAT 96
[2022-09-22] MEDS: MULTIVIT/MIN/PREN/FOL AC/IRON TABLET 1 TAB PO (09:24)
--- NOTE | 2022-09-22 11:14 | PM.OBPNVD ---
OB - PN: Subj Subjective Date/time seen: 09/22/22 11:14 Narrative: Pain OK. Would like to go home. OB - PN: Obj Data Labs CBC & Chem 7: 09/21/22 04:13 OB - PN A/P Assessment and Plan (1) (normal spontaneous vaginal delivery): Code(s): O80 - Encounter for full-term uncomplicated delivery Status: Acute Plan Comments: A: PPD#2, doing well. P: Home to f/u 6 weeks. Exam Psych: Other: AVSS ABD soft, nontender, fundus firm EXT nontender
--- NOTE | 2022-09-22 11:15 | PM.OBDSVD ---
DS: Admitting Diagnosis Discharge Date 09/22/22 Admitting Diagnosis IUP at term DS: Discharge Diagnosis Discharge Diagnosis (1) (normal spontaneous vaginal delivery): Code(s): O80 - Encounter for full-term uncomplicated delivery Status: Acute OB - DS: Summary OB Procedures : None OB Procedures Intrapartum: Spontaneous Vag Delivery OB Procedures: : None Time Spent with Patient Time attestation: Total time spent providing and/or coordinating discharge services: Discharge Plan Discharge Attending physician on discharge: Gian Sierra Discharging Clinician: Gian Sierra Patient Disposition: Home, Self-Care Activity: may shower, no straining and pelvic rest Diet: heart healthy Wound Care Instructions: follow printed instructions Stand Alone Forms: General Discharge Information Follow-up/Referrals: Gian Sierra MD [Physician] - Discharge Medications: New ibuprofen 600 mg tablet 600 mg PO Q6H PRN (Reason: cramps) Qty: 30 0RF Continued levothyroxine 88 mcg tablet 88 mcg PO QAM One Daily [phone] mg-mcg-mg Combo Pack 1 pkg PO DAILY acetaminophen [Tylenol Extra Strength] 500 mg tablet 500 mg PO Q6H PRN (Reason: pain) Qty: 30 0RF fluoxetine 40 mg capsule 40 mg PO HS buspirone 5 mg tablet 5 mg PO BID Date of admission: 09/20/22 06:27 Primary Care Provider: Joseph,Laurel Junior Admitting Provider: Gian Sierra Attending physician on admission: Gian Sierra Condition: Stable
[2022-09-24 14:20] VITALS: BP 138/84; PULSE 92; RESP 20; TEMP 36.9; O2SAT 100
== END 2022-09-22 12:13 | disposition home or self-care (01) | DRG 807 ==
LOC: ANHOB2 09-22 11:35 → ANHLDR 09-24 12:03 → ANHOB2 09-24 12:03
PROVIDERS: Admitting Provider Obstetrics & Gynecology; PCP Family Medicine; Visit Provider Obstetrics & Gynecology
DX: O99.284 Endocrine, nutritional and metabolic diseases complicating childbirth (principal); Z37.0 Single live birth; Z3A.39 39 weeks gestation of pregnancy; E03.9 Hypothyroidism, unspecified; O36.8330 Maternal care for abnormalities of the fetal heart rate or rhythm, third trimester, not applicable or unspecified; O70.0 First degree perineal laceration during delivery; O99.344 Other mental disorders complicating childbirth; F41.8 Other specified anxiety disorders
CPT/HCPCS: 36415; 85014; 85018; 85025; 86592; 86850; 86900; 86901; A9270; J2590; J2795; J3010; J7120

== ENCOUNTER → 2023-12-12 13:48 | Outpatient (CLI) | payer BC, SELFPAY ==
--- NOTE | ~2023-12-12 | US_ITS ---
EXAMINATION: US pelvic complete w TV DATE: 12/12/2023 14:19 INDICATION: Pelvic pain TECHNIQUE: Multiple transabdominal and endovaginal sonographic images of the pelvis were obtained. COMPARISON: None. FINDINGS: The uterus measures 7.7 x 3.6 x 4.7 cm. The endometrial complex measures 4 mm in thickness. Linear e chogenic and shadowing IUD in expected position within the endometrial canal. The right ovary measure s 2.7 x 2.8 x 2.6 cm. The left ovary measures 2.9 x 1.5 x 2.3 cm. There are a few subcentimeter anech oic cysts/follicles in both ovaries. Vascular flow identified in both ovaries on color Doppler. There is no free fluid in the pelvis. IMPRESSION: 1. IUD in expected position within the endometrial canal of the normal uterus. 2. Vascular flow and a few subcentimeter anechoic cysts/follicles in both ovaries. Reviewed, dictated and finalized at location A. [facility] EXPERT IMPRESSION: 1. IUD in expected position within the endometrial canal of the normal uterus. 2. Vascular flow and a few subcentimeter anechoic cysts/follicles in both ovari es.
== END ==
PROVIDERS: PCP Obstetrics & Gynecology; Visit Provider Obstetrics & Gynecology
DX: N83.292 Other ovarian cyst, left side (principal); N83.291 Other ovarian cyst, right side; Z97.5 Presence of (intrauterine) contraceptive device
CPT/HCPCS: 76830; 76856

== ENCOUNTER 2023-12-24 13:50 | Outpatient (CLI) | payer BC, SELFPAY | END 2023-12-24 13:51 | disposition home or self-care (01) | LOC: ANHSURGERY 13:52 | PROVIDERS: PCP Family Medicine; Visit Provider Obstetrics & Gynecology | DX: R10.2 Pelvic and perineal pain (principal); Z01.818 Encounter for other preprocedural examination | CPT/HCPCS: 36415; 86850; 86900; 86901 ==

== ENCOUNTER 2023-12-27 01:07 | Day surgery (SDC) | payer BC, SELFPAY ==
[2023-12-18 13:59] VITALS: BMI 27.3
--- NOTE | 2023-12-18 14:03 | PC.NURSE ---
Report to the Outpatient Waiting Room, entrance under the green pavilion located off [facility], at time 8:30 on date 12/27/23. Planned Procedure Time: 10:30. Time changes happen often and if your time is changed the preop area will call you the afternoon before. - You and your visitor will be asked to self-screen and do not enter if you have any COVID symptoms. - A mask is optional within the hospital at this time. Patients may have clear liquids (water, carbonated beverages, clear teas, apple juice) until 3 hours prior to surgery (7:30) with a maximum of 20 ounces. - No food from midnight until time of surgery Take the following medications with a SIP of water the morning of surgery: BUSPIRONE, LEVOTHYROXINE, SERTRALINE DO NOT STOP ANY OF YOUR OTHER PRESCRIPTION MEDICATIONS PRIOR TO SURGERY ?EXCEPT THE FOLLOWING Medications to discontinue per physician: N/A Date to take last dose: N/A Please no make-up, nail armenian, hairspray, perfume, deodorant, or body powder the day of surgery. No jewelry (including any body piercings) or valuables the day of surgery, leave them at home. Please take a shower or bath the night before, or the morning of, surgery with an antibacterial soap. Wear comfortable, loose fitting clothing. - Jewelry must be removed prior to entering the operating room. Rings and piercings that are not removed may be cut off. - The hospital will not accept responsibility for valuables. - Please leave all valuables, including medications, at home the day of surgery. If you are going home after surgery, a licensed bellman driver must drive you home. - NO public transportation without another adult if you receive anesthesia. - We recommend that an adult stay with you for 24 hours following discharge. - We also recommend that you do not drive, make important decision, drink alcoholic beverages, or take any drugs that were not prescribed by your health care provider for at least 24 hours after your discharge time. Follow any additional instructions given to you from your surgeon. If you or anyone in your household have experienced Covid symptoms in the past week, please notify your surgeon or the nurse liaison at the phone number below for possible testing. Telephone instructions given to PT - MONA LEI and asked if any additional questions and then verbalized understanding. Patient advised to call surgeon office or pre surgery nurse liaison [phone] if any additional questions.
--- NOTE | 2023-12-24 13:06 | P.HP_ITS ---
H&P: HPI History of Present Illness Date/Time: 12/24/23 13:06 Chief Complaint: Pelvic pain Narrative: This is 28-year-old 1 para 1 admitted for laparoscopy secondary severe pelvic. She had an ultrasound which was within normal limits she has an IUD this in the right spot she continues to have pain discomfort and dyspareunia. There is a family history of endometriosis and this is expected. She will u ndergo laparoscopy. Risks and benefits including exclusive of , aspiration pneumonia bleeding, transfusion, perforation injury to bowel, bladder, ureters, or other internal organs with need for open laparotomy. She received the [employer] handout entitled laparoscopy. She had all questions answered. She requested to proceed PMFSH Past Medical History Medical History Anxiety Hypothyroidism Family History Family History Other Patient denies significant medical history Social History Social History Smoking packs per day: 0.5 Smoking cigarettes per day: 10.0 Years smoked: 1 Smoking pack-years: 0.50 Smoking status: Current every day smoker Tobacco type: e-cigarettes/vaping Smoking end date: 10/02/20 Alcohol intake: current Drinks per week: 5 Substance use: current Substance use type: marijuana Living arrangements: with family Additional living arrangements comments: [facility] Spiritual care concerns: No Meds Home Medications and Allergies Home Medications Medication Instructions Recorded Confirmed Type levothyroxine 88 mcg tablet 88 mcg PO QAM 12/01/20 12/18/23 History buspirone 5 mg tablet 5 mg PO BID 06/21/22 12/18/23 History sertraline 100 mg tablet 100 mg PO DAILY 12/18/23 12/18/23 History Allergies Allergy/AdvReac Type Severity Reaction Status Date / Time No Known Allergies Allergy Verified 12/18/23 13:57 Exam Const: General: cooperative, healthy appearing and comfortable Nutritional Appearance: average body habitus Orientation/consciousness: oriented to person, oriented to place and oriented to time HENMT: Head: normal to inspection Resp: Effort & Inspection: normal respiratory effort Cardio: Rate: regular rate Rhythm: regular rhythm Heart sounds: S1 normal heart sound present and S2 normal heart sound present GI: Inspection: normal to inspection : External Female Exam: normal external appearance Speculum Exam - Vagina: normal appearance of the vagina Speculum Exam - Cervix: normal appearance of the cervix Bimanual exam- vagina & uterus: non-tender Bimanual Exam- Adnexa, other: tender bilaterally Assessment and Plan Assessment and plan (1) Pelvic pain: Code(s): R10.2 - Pelvic and perineal pain Status: Acute Plan Diagnostic laparoscopy
[2023-12-27] VITALS (9 sets, daily range): BP systolic 96–150; BP diastolic 47–74; PULSE 68–82; RESP 12–18; TEMP 36.4–36.7; O2SAT 97–100
--- NOTE | 2023-12-27 06:36 | WPDHPUPDATE1 ---
History and Physical Update Update Date/Time: 12/27/23 06:36 History and Physical has been reviewed, including an updated exam of the patient. There are NO changes in the patient's condition. Risks, benefits, and alternatives have been discussed and questions answered. Patient agrees to proceed with procedure.
[2023-12-27] MEDS: LACTATED RINGERS 1,000 ML 30 ML IV CONT (09:06)
[2023-12-27] MEDS: KETOROLAC 15 MG/ML VIAL (*BKC) IV PUSH (09:20)
[2023-12-27] MEDS: ACETAMINOPHEN 500 MG TABLET 1000 MG PO (09:20)
[2023-12-27] MEDS: SCOPOLAMINE 1 MG PATCH 1 PATCH TRANSDERM (09:26)
--- NOTE | 2023-12-27 09:55 | WPDANESEPPF ---
Anes - Initial Pre Proc Eval Procedure: Operation Date: 12/27/23 10:30 Proposed Procedures p Diagnostic Laparoscopy - Gian García MD Date/Time: 12/27/23 09:55 Surgeon: Gian García MD Pre Op Diagnosis: Pelvic Pain Patient Data Age: 28 Gender: F Height: 1.73 m Weight: 79.8 kg Last Vital Signs Temp 36.4 C 12/27/23 08:37 Pulse 82 12/27/23 08:37 Resp 16 12/27/23 08:37 BP 106/74 12/27/23 08:37 Pulse Ox 97 12/27/23 08:37 O2 Del Method Room Air 12/27/23 08:37 Allergies Allergy/AdvReac Type Severity Reaction Status Date / Time No Known Allergies Allergy Verified 12/27/23 09:27 Home Medications Medication Instructions Recorded Confirmed Type levothyroxine 88 mcg tablet 88 mcg PO QAM 12/01/20 12/27/23 History buspirone 5 mg tablet 5 mg PO BID 06/21/22 12/27/23 History sertraline 100 mg tablet 100 mg PO DAILY 12/18/23 12/27/23 History hydrocodone 5 mg-acetaminophen 325 1 tablet PO Q4H PRN pain #20 tabs 12/27/23 Rx mg tablet Patient hx anesthesia problems: none Family hx anesthesia problems: none Results Review: All pre-operative results and documents have been reviewed as part of the pre-operative evaluation. [facility] Past Medical History Medical History Anxiety Hypothyroidism Surgical History Surgical History (Updated 12/27/23 @ 09:55 by Gian Nance MD) History of D&C Family History Family History Other Patient denies significant medical history Social History Social History Smoking packs per day: 0.5 Smoking cigarettes per day: 10.0 Years smoked: 1 Smoking pack-years: 0.50 Smoking status: Current every day smoker Tobacco type: e-cigarettes/vaping Smoking end date: 10/02/20 Alcohol intake: current Drinks per week: 5 Substance use: current Substance use type: marijuana Living arrangements: with family Additional living arrangements comments: HUSB Spiritual care concerns: No Anes - Eval Final PreProcedure Day of Procedure 12/27/23 09:55 Patient weight: overweight Heart: regular rate and rhythm Lungs: clear to auscultation Airway: Mallampati scale class 1 Neurological: alert and oriented Last oral intake: >/= 8 hours ASA classification: II Emergent: no Anesthetic plan: proceed Anesthesia type and monitoring: general ETT Results Review: All pre-operative results and documents have been reviewed as part of the pre-operative evaluation. Informed Consent: The patient's anesthetic plan and its attendant risks and benefits were discussed with the patient/family/POA. Questions were solicited and answers provided to the satisfaction of the patient/family/POA.
--- NOTE | 2023-12-27 10:45 | W.PM.PROC2 ---
Procedure Note - Detailed Date of Procedure 12/27/23 Pre-op Diagnosis Pelvic Pain Post-op Diagnosis Other (Pelvic pain /endometriosis) Procedure Performed laparoscopic destruction of endometriosis destruction right cyst Surgeon Gian García MD Anesthesia General Indications this is a 28-year-old with severe pelvic pain Findings endometriosis along the left and right uterosacral ligaments. Benign-appearing right ovarian cyst. Normal-appearing appendix gallbladder and liver edge Description of Procedure patient was prepped draped sterile fashion placed the dorsal lithotomy position. Under excellent general trach anesthesia weighted speculum placed in posterior fornix vagina. Anterior lip of the cervix grasped with single-tooth tenaculum. Wadsworth's cannula inserted attached to the single-tooth to be used later for uterine manipulation. After emptying the bladder of clear urine the weighted speculum was removed and the gloves were changed. An infraumbilical incision made Veress passed in the. Abdomen filled with CO2 gas to 15. The 5mm trocar advanced in the abdomen. Downside visualized no injury seen. Patient placed in Trendelenburg and a suprapubic incision made. The 5mm trocar advanced under direct visualization assuring no injury. But 10cc of serosanguineous fluid was seen in the cul-de-sac. This was suction removed. Moderate-sized right ovarian cyst was spina benign in nature was opened and drained clear fluid. Endometriosis was then seen along each uterosacral ligament this was burned at 35 w per 2nd. No other abnormalities were seen. The lower site removed. The gas removed from the abdomen. The incisions closed with 4 Monocryl and glue and the patient was awakened and went to recovery in satisfactory condition. All sponge, needle, instrument counts were correct Estimated Blood Loss 5 Drains No Packing No Pathology None sent Complications No immediate complications Condition Stable Disposition PACU
[2023-12-27] MEDS: fentaNYL CITRATE INJ (*CRX) 100 MCG/2 ML VIAL 25 MCG IV PUSH ×4 (11:26→11:38)
[2023-12-27] MEDS: oxyCODONE HCL (*CRX) 5 MG TAB IR PO (12:38)
== END 2023-12-27 13:20 | disposition home or self-care (01) ==
PROVIDERS: PCP Family Medicine; Visit Provider Obstetrics & Gynecology
PROC: (CPT 49320; principal; 2023-12-27 10:30)
DX: N80.3C3 Endometriosis of bilateral uterosacral ligament(s), unspecified depth (principal); N83.201 Unspecified ovarian cyst, right side; E03.9 Hypothyroidism, unspecified; F41.9 Anxiety disorder, unspecified; F17.290 Nicotine dependence, other tobacco product, uncomplicated; F12.90 Cannabis use, unspecified, uncomplicated
CPT/HCPCS: 58662; A9270; J1100; J1200; J1596; J1885; J2250; J2405; J2704; J2710; J3010; J7120

== ENCOUNTER 2025-02-25 08:19 | Observation (INO) | payer OTHER, BC, SELFPAY ==
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
[2025-02-25 08:35] VITALS: BMI 30.4
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
--- OUTSIDE RECORDS SUMMARY | 2025-02-25 08:40 | XMS_ITS | Encounter Summary ---
Author Organization [facility] Address [address] [place] [address] Care Team Providers Care Criminal Judge Name Role Phone Laurel Musa DO Primary Care Provider [phone] Encounter Details Date Type Department Care Team (Late st Contact Info) Description 09/28/2024 [employer] Message Enc [facility] Family Medicine - [place] [address], [address] [place] [id number] Laurel Musa DO [address] [place] [address] Medication change Social History Tobacco Use Types Packs/Day Years Used Date Smoking Tobacco: Former Cigarettes Q uit: 01/01/2022 Electronic Cigarettes [place] t: 01/01/2022 Passive Smoke Exposure: Past Smokeless Tobacco: Never Alcohol Use Standard Drinks/Week Comments Yes 0 (1 standard drink = 0.6 oz pur e alcohol) social PHQ-2 Answer Date Recorded Patient Health Questionnaire-2 Score 0 03/16/2024 Comments No Sex and Gender Information Value Date Recorded Sex Assigned at Not on file Legal Sex Female 8:30 PM CDT Gender Identity Not on file Sexual Orientation Not on file documented as of this encounter Progress Notes * Laurel Musa DO - 09/28/2024 12:41 PM CDT Yes we can switch to Prozac, does she remember the dose? 40mg? Did her OB tell her she has to come off Zoloft? They don't always make people change documented in this encounter Plan of Treatment Not on file documented as of this encounter Visit Diagnoses Not on filedocumented in this encounter Additional Health Concerns Assessment Noted Time PHQ-9 Depression Total Score: 2 03/16/20 24 10:40 AM CDT documented as of this encounter Care Teams Criminal Judge Relationship Specialty Start Date End Date Laurel Musa DO [address] [place] [address] PCP - General 06/26/17 documented as of this encounter
--- OUTSIDE RECORDS SUMMARY | 2025-02-25 08:40 | XMS_ITS | Clinical Summary ---
Author Organization [facility] Address [address] [place] [address] Care Team Providers Care Grinder Carbon Plant Name Role Phone Laurel Musa DO Primary Care Provider [phone] Allergies No known active allergies Medications ALPRAZolam (XANAX) 0.25 MG tablet Take 1 tablet (0.25 mg total) by mouth nightly as needed. at bedtime. 12/10/19 23 Active ibuprofen (MOTRIN) 600 MG tablet TAKE 1 TABLET BY MOUTH EVERY 6 HOURS NEEDED FOR CRAMPS 09/22/20 22 Active sertraline (ZOLOFT) 100 MG tablet 12/17/19 23 Active levonorgestrel (MIRENA, 52 MG,) 20 MCG/DAY IUD 1 Intra Uterine Device by Intrauterine route once. Placed by quarter section ironer 11/22 Active busPIRone (BUSPAR) 5 MG tabletIndicati ons:Anxiety take 1 tablet twice a day 180 tablet 1 08/31/20 24 Active levothyroxine (SYNTHROID) 112 MCG tabletIndicati ons:Hypothyroi dism TAKE 1 TABLET(112 MCG) BY MOUTH DAILY 30 tablet 02/18/20 25 Active levothyroxine (SYNTHROID) 112 MCG tabletIndicati ons:Hypothyroi dism Take 1 tablet (112 mcg total) by mouth daily. 30 tablet 2 11/12/20 24 025 Discontinued vitamin D3 (CHOLECALCIFER OL) 1.25 mg capsuleIndicat ions:Vitamin D deficiency Take 1 capsule (50,000 Units total) by mouth once a week for 12 doses. 12 capsule 11/12/20 24 025 Active Problems Problem Noted Date Diagnosed Date Abnormal weight loss 10/31/2017 Functional dyspepsia 10/31/2017 Nausea 07/23/2017 Pharyngitis 06/26/2017 Sore throat 06/26/2017 Viral infection 06/26/2017 Hypothyroidism 08/01/2012 Resolved Problems Problem Noted Date Diagnosed Date Resolved Date Influenza vaccine needed 10/23/201610/2020 Encounter for preventive health examination 08/01/2012 08/12/2020 Encounters Date Type Department Care Team Description 02/16/2025 MyChart Message Enc [facility] Family Medicine - [place] [address] [place] [address] Laurel Musa, DO Levothyroxine synthroid from Last 3 Months Immunizations Name Administration Dates Next Due Dtap/Hep B/Ipv 05/05/1998, 4,01/29/1994,1993,1993, 1993 Hepatitis B 08/27/1994,01/29/1994,1993 Hib Vaccine, Prp-Omp 08/27/1994,1993,09/25,1993 MMR (Generic) 05/05/1998,08/27/1994 Opv 05/05/1998,01/29/1994,1993 ,1993 Tdap (Generic) 08/22/2022 Family History Medical History Relation Comments Alcohol Abuse Father None Mother Diabetes Paternal Grandmother Relation Status Comments Father Mother Paternal Grandmother Social History Tobacco Use Types Packs/Day Years Used Date Smoking Tobacco: Former Cigarettes Q uit: 01/01/2022 Electronic Cigarettes [place] t: 01/01/2022 Passive Smoke Exposure: Past Smokeless Tobacco: Never Tobacco Cessation:Counseling Given: No Alcohol Use Standard Drinks/Week Comments Yes 0 (1 standard drink = 0.6 oz pur e alcohol) social PHQ-2 Answer Date Recorded Patient Health Questionnaire-2 Score 0 03/16/2024 Comments No Sex and Gender Information Value Date Recorded Sex Assigned at Not on file Legal Sex Female 8:30 PM CDT Gender Identity Not on file Sexual Orientation Not on file Last Filed Vital Signs Vital Sign Reading Time Taken Comments Blood Pressure 116/80 03/16/2024 10:25 AM CDT Pulse 76 03/16/2024 10:25 AM CDT Temperature 36.9 C (98.5 F) 03/16/2024 10:25 AM CDT Respiratory Rate 18 03/16/2024 10:25 AM CDT Oxygen Saturation 98% 03/16/2024 10:25 AM CDT Inhaled Oxygen Concentration - - Weight 80.8 kg (178 lb 3.2 oz) 03/16/2024 10:25 AM CDT Height 172.1 cm (5' 7.75 ) 03/16/2024 10:25 AM C DT Body Mass Index 27.3 03/16/2024 10:25 AM CDT Plan of Treatment Health Maintenance Due Date Last Done Comments Cervical Cancer Screening Pap with HPV Testing (Age 30 to 64) Every 5 Years 2023 COVID-19 Vaccine ( season) 2024 Influenza Adult (#1) 2024 Cervical Cancer Screening Pap Smear (Age 30 to 64) Every 3 Years 09/12/2024 09/12/2021 Cervical Cancer Screening with HPV 09/12/2024 PHQ-2 (Physician [place]) 12/02/2024 03/16/2024 Annual Physical 03/16/2025 03/16/2024, 08/15/2022 DTaP, Tdap and Td Vaccines (7 - Td or Tdap) 08/22/2032 08/22/2022, 05/05/1998, 08/27/1994, Additional history exists Hepatitis B Vaccines Completed 05/05/1998, 08/27/1994, 08/27/1994, Additional history exists Hepatitis C Completed 09/01/2024 HPV Vaccines Aged Out No longer eligi ble based on patient's age to complete this topic Meningococcal B Vaccine Aged Out No l onger eligible based on patient's age to complete this topic Meningococcal Vaccine Aged Out No jon shayla eligible based on patient's age to complete this topic Pneumococcal Vaccine: Pediatrics (0 to 5 Years) and At-Risk Patients (6 to 64 Years) Aged Out No longer eligible based on patient's age to complete this topic RSV Immunizations Under 20 Months Aged Out No longer eligible based on patient's age to complete this topic Procedures Procedure Name Priority Date/Time Associated Diagnosis Comments THYROXINE, TOTAL Routine 02/15/2025 11:3 6 AM CDT Hypothyroidism THYROID STIM HORMONE TSH Routine 02/15/2025 11:36 AM CDT Hypothyroidism VITAMIN D, 25 OH TOTAL Routine 11/30/2024 1:50 PM HOT PACKER Vitamin D deficiency HEPATITIS C ANTIBODY 09/01/2024 11:40 AM CDT OUTSIDE CYTOPATH CERV/VAG INTERPRET (PAP) (SCAN ORDER) 09/12/2021 from Last 3 Months or Most Recently Relevant to Health Maintenance Results * THYROXINE, TOTAL (02/15/2025 11:36 AM CDT) T4 10.7 4.5 - 12.0 ug/dL [facility] 1 02/15/2025 11:3 6 AM CDT 02/15/2025 Narrative [facility] - 02/16/2025 8:11 AM CDT Performed at: [address] [place] [id number] [employer] Good[employer] Sales Manager: Jay Hart PhD, Phone: [phone] Laurel Musa DO LABORATORY Final Result [facility] [address] [place] [address] [facility] * THYROID STIM HORMONE TSH (02/15/2025 11:36 AM CDT) TSH 2.130 0.450 - 4.50 uIU/mL [facility] 1 02/15/2025 11:3 6 AM CDT 02/15/2025 Narrative [facility] - 02/16/2025 8:11 AM CDT Performed at: [address] [place] [address] [id number] Sporting Goods Sales Manager: Jay Hart PhD, Phone: [phone] Laurel Musa DO LABORATORY Final Result Performing Organization Address [facility] de Phone Number [facility] [address] [place] [address] [facility] * VITAMIN D, 25 OH TOTAL (11/30/2024 1:50 PM HOT PACKER) Pathologist [facility] VITAMIN D 25 HYDROXY S/P/B 99.6 30.0 - 100.0 ng/mL [facility] 1 Comment: Vitamin D deficiency has been defined by the [place] of Medicine and an Endocrine Society practice guideline as a level of serum 25-OH vitamin D less than 20 ng/mL (1,2). The Endocrine Society went on to further define vitamin D insufficiency as a level between 21 and 29 ng/mL (2). 1. IOM ([place] of Medicine). 2010. Dietary reference intakes for calcium and D. [place]: The National Academies Press. 2. Kelsey MF, Higinio HOLLOWAY, Neel MCNULTY, et al. Evaluation, treatment, and prevention of vitamin D deficiency: an Endocrine Society clinical practice guideline. JCEM. 2010; 96(7):1911-30. 11/30/2024 1:50 PM HOT PACKER 11/30/2024 Narrative [facility] - 12/02/2024 8:09 AM HOT PACKER Performed at: - [facility] [id number] [place], [place] [id number] [employer]ing Goods Sales Manager: Jay Hart PhD, Phone: [phone] Laurel Musa DO LABORATORY Final Result Performing Organization Address [facility] Co de Phone Number [facility] [address] [place] [address] [facility] * HEPATITIS C ANTIBODY (09/01/2024 11:40 AM CDT) Pathologist [facility] HEPATITIS C AB Non Reactive Non Reacti [facility] 1 Comment: HCV antibody alone does not differentiate between previously resolved infection and active infection. Equivocal and Reactive HCV antibody results should be followed up with an HCV RNA test to support the diagnosis of active HCV infection. 09/01/2024 11:4 0 AM CDT 09/01/2024 Narrative [facility] - 09/02/2024 10:36 AM CDT Performed at: - [facility] [address] [id number] Sporting Goods Sales Manager: Jay Hart PhD, Phone: [phone] Laurel Musa DO LABORATORY Final Result [facility] [address] [place] [address] [facility] * OUTSIDE CYTOPATH CERV/VAG INTERPRET (PAP) (09/12/2021) 09/12/2021 Narrative 09/12/2021 Ordered by an unspecified provider. us Documents Scanned SCANNING Final Result from Last 3 Months or Most Recently Relevant to Health Maintenance Insurance Care Teams Grinder Carbon Plant Relationship Specialty Start Date End Date Laurel Musa DO [address] [place] [address] PCP - General 06/26/17
--- OUTSIDE RECORDS SUMMARY | 2025-02-25 08:40 | XMS_ITS | Encounter Summary ---
Author Organization [facility] Address [address] [place] [address] Care Team Providers Care Paralegals Name Role Phone Laurel Musa DO Primary Care Provider [phone] Laurel Musa DO Primary Care Provider [phone] Laurel Musa DO Primary Care Provider [phone] Laurel Musa DO Primary Care Provider [phone] Encounter Details Date Type Department Care Team (Late st Contact Info) Description 12/08/2002 Abstract [facility] Clin[facility] Conversion Md, Generic Conversion, Social History Tobacco Use Types Packs/Day Years Used Date Smoking Tobacco: Never Assessed Comments Unknown Sex and Gender Information Value Date Recorded Sex Assigned at Not on file Legal Sex Female 8:30 PM CDT Gender Identity Not on file Sexual Orientation Not on file documented as of this encounter Plan of Treatment Not on file documented as of this encounter Visit Diagnoses Not on filedocumented in this encounter Additional Health Concerns Infection Onset Date Last Indicated Resolved Time COVID-19 Rule Out 01/10/2021 01/10/2021 01/10/2021 1:37 PM ROLLING MILL PLUGGER COVID-19 Rule Out 08/24/2021 08/24/2021 08/25/2021 12:16 AM CDT COVID-19 Rule Out 01/07/2023 01/07/2023 01/07/2023 10:00 AM ROLLING MILL PLUGGER COVID-19 Rule Out 01/07/2023 01/07/2023 01/08/2023 2:45 AM ROLLING MILL PLUGGER documented as of this encounter Care Teams Paralegals Relationship Specialty Start Date End Date Laurel Musa DO [address] [place] [address] PCP - General 06/26/17 Laurel Musa DO [address] [place] [address] PCP - General 07/12/15 06/25/17 Laurel Musa DO [address] [place] [address] PCP - General 03/11/14 07/11/15 Laurel Musa DO [address] [place], [place] [address] PCP - General 03/02/14 03/10/14 documented as of this encounter
[2025-02-25 08:45] VITALS: BP 114/66; PULSE 87
[2025-02-25 08:47] VITALS: BP 115/69; PULSE 85
[2025-02-25 09:00] VITALS: BP 123/64; PULSE 83
--- NOTE | 2025-02-25 09:23 | OBADM ---
This patient, Isa Vora, admitted to the OB room OB Post 116 for observation. Patient/family oriented to hospital policies and general routines including ID bracelet, bed and alarms, visiting hours, pain management, procedures, bathroom and other care routines, personal items, smoking policy, room service/diet, and visiting hours. Patient/Family are encouraged to report perceived risks to care and to ask questions if they do not understand what they are told or what they should do.
[2025-02-25] MEDS: ACETAMINOPHEN 500 MG TABLET 1000 MG PO (09:49)
--- NOTE | 2025-02-25 10:56 | PC.NURSE ---
Notified Dr. Conor García that patient pain has not improved after a dose of tylenol. Also reported placenta normal per US report, no contractions and FHR tracing reactive. given orders for Flexeril 10 mg PO x1 as long as patient has a ride home and to discharge after getting Flexeril dose. Informed MD patient has her present and read back orders to confirm.
[2025-02-25] MEDS: CYCLOBENZAPRINE HCL 10 MG TABLET PO (11:18)
--- OUTSIDE RECORDS SUMMARY | 2025-02-26 07:43 | XMS_ITS | Encounter Summary ---
Author Organization [facility] Address [address] [place] [address] Care Team Providers Care Kiln Placer Name Role Phone Laurel Musa DO Primary Care Provider [phone] Laurel Musa DO Primary Care Provider [phone] Laurel Musa DO Primary Care Provider [phone] Laurel Musa DO Primary Care Provider [phone] Encounter Details Date Type Department Care Team (Late st Contact Info) Description 12/08/2002 Abstract [facility] Clinics Conversion Md, Generic Conversion, Social History [...] Rule Out 01/10/2021 01/10/2021 01/10/2021 1:37 PM MRI ASSISTANT COVID-19 Rule Out 08/24/2021 08/24/2021 08/25/2021 12:16 AM CDT COVID-19 Rule Out 01/07/2023 01/07/2023 01/07/2023 10:00 AM MRI ASSISTANT COVID-19 Rule Out 01/07/2023 01/07/2023 01/08/2023 2:45 AM MRI ASSISTANT documented as of this encounter Care Teams Kiln Placer Relationship Specialty Start Date End Date Laurel Musa DO [address] [place] [address] PCP - General 06/26/17 Laurel Musa DO [address] [place] [address] PCP - General 07/12/15 06/25/17 Laurel Musa DO [address] [place] [address] PCP - General 03/11/14 07/11/15 Laurel Musa DO [address] [place], [place] [address] PCP - General 03/02/14 03/10/14 documented as of this encounter
--- OUTSIDE RECORDS SUMMARY | 2025-02-26 07:43 | XMS_ITS | Clinical Summary ---
Author Organization [facility] Address [address] [place] [address] Care Team Providers Care Pearl Hand Name Role Phone Laurel Musa DO Primary Care Provider [phone] Allergies No known active allergies Medications ALPRAZolam [...] Device by Intrauterine route once. Placed by fur blowing machine attendant 11/22 Active busPIRone (BUSPAR) 5 MG tabletIndicati [...] Care Team Description 02/16/[address] [facility] - [place] [address], [address] [place] [address] Laurel Musa, DO Levothyroxine synthroid [...] Cancer Screening with HPV 09/12/2024 PHQ-2 (Physician [place]) 12/02/2024 03/16/2024 Annual Physical 03/16/2025 03/16/2024, 08/15/2022 [...] OH TOTAL Routine 11/30/2024 1:50 PM HOT BALLER Vitamin D deficiency HEPATITIS C ANTIBODY 09/01/2024 11:40 AM CDT OUTSIDE CYTOPATH CERV/VAG INTERPRET (PAP) (SCAN ORDER) 09/12/2021 from Last 3 Months or Most Recently Relevant to Health Maintenance Results * THYROXINE, TOTAL (02/15/2025 11:36 AM CDT) T4 10.7 4.5 - 12.0 ug/dL [facility] 1 02/15/2025 11:3 6 AM CDT 02/15/2025 Narrative [facility] - 02/16/2025 8:11 AM CDT Performed at: [address] [place] [id number] Sorting Machine Attendant: Jay Hart PhD, Phone: [phone] Laurel Musa DO LABORATORY Final Result [facility] [address] [place] [address] [facility] * THYROID STIM HORMONE TSH (02/15/2025 11:36 AM CDT) TSH 2.130 0.450 - 4.50 uIU/mL [facility] 1 02/15/2025 11:3 6 AM CDT 02/15/2025 Narrative [facility] - 02/16/2025 8:11 AM CDT Performed at: [address] [place] [id number] Sorting Machine Attendant: Jay Hart PhD, Phone: [phone] Laurel Musa DO LABORATORY Final Result Performing Organization Address [facility] de Phone Number [facility] [address] [place] [address] [facility] * VITAMIN D, 25 OH TOTAL (11/30/2024 1:50 PM HOT BALLER) Pathologist [facility] VITAMIN D 25 HYDROXY S/P/B 99.6 30.0 - 100.0 ng/mL [facility] 1 Comment: Vitamin D deficiency has been defined by the [place] of Medicine and an Endocrine Society practice guideline as a level of serum 25-OH vitamin D less than 20 ng/mL (1,2). The Endocrine Society went on to further define vitamin D insufficiency as a level between 21 and 29 ng/mL (2). 1. IOM ([place] of Medicine). 2010. Dietary reference intakes for calcium and D. [place]: The National Academies Press. 2. Kelsey MF, Higinio HOLLOWAY, Neel MCNULTY, et al. Evaluation, treatment, and prevention of vitamin D deficiency: an Endocrine Society clinical practice guideline. JCEM. 2010; 96(7):1911-30. 11/30/2024 1:50 PM HOT BALLER 11/30/2024 Narrative [facility] - 12/02/2024 8:09 AM HOT BALLER Performed at: - [place] [id number] [place], [place] [id number] Sorting Machine Attendant: Jay Hart PhD, Phone: [phone] Laurel Musa DO LABORATORY Final Result Performing Organization Address [facility] Co de Phone Number [facility] [address] [place] [address] [facility] * HEPATITIS C ANTIBODY (09/01/2024 11:40 AM CDT) Pathologist [facility] HEPATITIS C AB Non Reactive Non Reacti [facility] 1 Comment: HCV antibody alone does not differentiate between previously resolved infection and active infection. Equivocal and Reactive HCV antibody results should be followed up with an HCV RNA test to support the diagnosis of active HCV infection. 09/01/2024 11:4 0 AM CDT 09/01/2024 Narrative [facility] - 09/02/2024 10:36 AM CDT Performed at: - [facility] [address] [id number] Sorting Machine Attendant: Jay Hart PhD, Phone: [phone] Laurel Musa DO LABORATORY Final Result [facility] [address] [place] [address] [facility] * OUTSIDE CYTOPATH CERV/VAG INTERPRET (PAP) (09/12/2021) 09/12/2021 Narrative 09/12/2021 Ordered by an unspecified provider. us Documents Scanned SCANNING Final Result from Last 3 Months or Most Recently Relevant to Health Maintenance Insurance Care Teams Pearl Hand Relationship Specialty Start Date End Date Laurel Musa DO [address] [place] [address] PCP - General 06/26/17
--- OUTSIDE RECORDS SUMMARY | 2025-02-26 07:43 | XMS_ITS | Encounter Summary ---
Author Organization [facility] Address [address] [place] [id number] Care Team Providers Care Agronomy Professor Name Role Phone Laurel Musa DO Primary Care Provider [phone] Encounter Details Date Type Department Care Team (Late st Contact Info) Description 09/28/2024 Terahertz Photonicst Message Enc [facility] Family Medicine - [place] [address], [address] [place] [id number] Laurel Musa DO [address] [place] [address] Medication change Social History Tobacco Use Types [...] documented as of this encounter Care Teams Agronomy Professor Relationship Specialty Start Date End Date Laurel Musa DO [address] [place] [address] PCP - General 06/26/17 documented as of this encounter
--- NOTE | 2025-02-26 13:27 | PM.OBTRLD ---
OB - Triage/Final Diagnosis Visit Information Reason for evaluation: decreased movement Comments/Additional reasons for admission: I have assessed the risk for this patient, Isa Vora, and determined that she would benefit from observation care.
== END 2025-02-25 11:45 | disposition home or self-care (01) ==
PROVIDERS: Admitting Provider Obstetrics & Gynecology; PCP Family Medicine; Visit Provider Obstetrics & Gynecology
DX: O36.8120 Decreased fetal movements, second trimester, not applicable or unspecified (principal); Z3A.26 26 weeks gestation of pregnancy
CPT/HCPCS: 76815; A9270; G0378; G0379

== ENCOUNTER 2025-05-16 09:11 | Inpatient (IN) | payer BC, SELFPAY ==
[2025-05-16] VITALS (100 sets, daily range): BP systolic 73–132; BP diastolic 36–86; PULSE 55–110; RESP 14–24; TEMP 36.1–37.1; O2SAT 97–100; BMI 31.6
[2025-05-16] MEDS: ACETAMINOPHEN 500 MG TABLET 1000 MG PO ×2 (10:55→22:23)
[2025-05-16] MEDS: LACTATED RINGERS 1,000 ML 125 ML IV CONT (10:58)
[2025-05-16] MEDS: AZITHROMYCIN 500 MG/NS 250 ML 500 MG/250 ML BAG 250 MG IVPB (10:59)
[2025-05-16 11:13] LABS: Basophils Percent Auto 0.2 % (0.2-1.2); Eosinophils Absolute Auto 0.7 K/mm3 (0-0.3); Hematocrit 35.4 % (37.0-47.0); Hemoglobin 11.8 g/dL (12.0-15.0); Immature Granulocyte Absolute 0.14 K/mm3 (0.00-0.031); Immature Granulocyte Percent A 0.8 % (0-0.5); Lymphocytes Absolute Auto 3.16 K/mm3 (0.9-3.2); Lymphocytes Percent Auto 17.8 % (18.3-44.2); Mean Corpuscular HGB Conc 33.3 g/dl (32-36); Mean Corpuscular Hemoglobin 30.3 pg (26-34); Monocytes Absolute Auto 1.1 K/mm3 (0.1-0.6); Monocytes Percent Auto 6.1 % (2.6-8.5); Neutrophils Absolute Auto 12.6 K/mm3 (1.3-6.7); Neutrophils Percent Auto 71.1 % (45.5-73.1); Platelet Count Result 317 k/mm3 (150-375); Red Blood Count 3.89 M/mm3 (4.2-5.4); Red Cell Distribution Width 13.2 % (11.5-14.5); White Blood Count 17.8 K/mm3 (4.5-10.0)
--- NOTE | 2025-05-16 11:37 | P.PNAN_ITS ---
Anes - Initial Pre Proc Eval Date/Time: 05/16/25 11:37 Surgeon: Gian aGrcía MD Pre Op Diagnosis: Patient Data Age: 29 Gender: F Height: Weight: Last Vital Signs Pulse 80 05/16/25 11:01 BP 127/75 05/16/25 11:01 Pulse Ox 100 05/16/25 11:36 Allergies Allergy/AdvReac Type Severity Reaction Status Date / Time No Known Allergies Allergy Verified 02/25/25 09:26 Home Medications ?Medication ?Instructions ?Recorded ?Confirmed ?Type levothyroxine 88 mcg tablet 112 mcg PO QAM 12/01/20 05/04/25 History buspirone 5 mg tablet 5 mg PO BID 06/21/22 05/04/25 History sertraline 100 mg tablet 100 mg PO DAILY 12/18/23 05/04/25 History ehcovnfu-ozy-Si-FA 1 mg tablet PO 05/04/25 History tablet Laboratory Tests 05/16/25 11:05 WBC 17.8 H K/mm3 (4.5-10.0) RBC 3.89 L M/mm3 (4.2-5.4) Hgb 11.8 L g/dL (12.0-15.0) Hct 35.4 L % (37.0-47.0) MCV 91.0 fl (80-100) MCH 30.3 pg (26-34) MCHC 33.3 g/dl (32-36) RDW 13.2 % (11.5-14.5) Plt Count 317 D k/mm3 (150-375) MPV 12.0 H fl (7.4-10.4) Immature Gran % (Auto) 0.8 H % (0-0.5) Neut % (Auto) 71.1 % (45.5-73.1) Lymph % (Auto) 17.8 L % (18.3-44.2) [place] % (Auto) 6.1 % (2.6-8.5) Eos % (Auto) 4.0 % (0-4.4) Baso % (Auto) 0.2 % (0.2-1.2) Lymph # (Auto) 3.16 K/mm3 (0.9-3.2) [place] # (Auto) 1.1 H K/mm3 (0.1-0.6) Eos # (Auto) 0.7 H K/mm3 (0-0.3) Baso # (Auto) 0.0 K/mm3 (0.0-0.1) Abs Immat Gran (auto) 0.14 H K/mm3 (0.00-0.031) Absolute Neuts (auto) 12.6 H K/mm3 (1.3-6.7) Absolute Nucleated RBC 0.000 K/mm3 (0.0-0.012) Nucleated RBC % 0.0 % (0.0-0.2) HIV 1&2 Ab/P24 Ag 4thGn Pending Patient hx anesthesia problems: none Family hx anesthesia problems: none Results Review: All pre-operative results and documents have been reviewed as part of the pre- operative evaluation. [facility] Past Medical History Medical History Anxiety Hypothyroidism Surgical History Surgical History History of D&C Family History Family History Other Patient denies significant medical history Social History Social History Smoking packs per day: 0.5 Smoking cigarettes per day: 10.0 Years smoked: 1 Smoking pack-years: 0.50 Smoking status: Current every day smoker Tobacco type: e-cigarettes/vaping Smoking end date: 10/02/20 Alcohol intake: current Drinks per week: 5 Substance use: never Substance use type: marijuana Living arrangements: with family Additional living arrangements comments: [facility] Spiritual care concerns: No Anes - Eval Final PreProcedure Day of Procedure 05/16/25 11:37 Patient weight: overweight Heart: regular rate and rhythm Lungs: clear to auscultation Airway: Mallampati scale class 1 Neurological: alert and oriented ASA classification: II Emergent: no Anesthetic plan: proceed Anesthesia type and monitoring: regional spinal and standard monitoring Results Review: All pre-operative results and documents have been reviewed as part of the pre- operative evaluation. Informed Consent: The patient's anesthetic plan and its attendant risks and benefits were discussed with the patient/family/POA. Questions were solicited and answers provided to the satisfaction of the patient/family/POA.
--- NOTE | 2025-05-16 11:59 | LDADM ---
This patient, Isa Vora, was admitted to Labor/Delivery/Recovery 104 on 05/16/25 at 09:11. Plans for labor, pain management and were discussed with patient. Patient/family oriented to hospital policies and general routines including ID bracelet, bed and alarms, visiting hours, pain management, procedures, bathroom and other care routines, personal items, smoking policy, room service/diet and guest tray routines, security routines, and visiting hours. Patient/Family are encouraged to report perceived risks to care and to ask questions if they do not understand what they are told or what they should do. See OBIX for further documentation.
[2025-05-16 12:11] LABS: Syphilis IgG/IgM Antibody Non-Reactive (Nonreactive)
[2025-05-16 12:24] LABS: HIV 1/2 Ab P24 Ag Result Negative (Negative)
--- NOTE | 2025-05-16 12:53 | PM.IMHP ---
H&P: HPI History of Present Illness Date/Time: 05/16/25 12:53 Chief Complaint: Water broke. Narrative: 29 y/o at 38 1/7 weeks with a gush of fluid this morning. RomPlus pos. GBS unknown. complicated by breech presentation. Review of Systems Review of Systems: All systems reviewed & are unremarkable except as noted in HPI and below PMFSH Past Medical History Medical History (Updated 05/16/25 @ 12:57 by Mitesh López MD) Term Anxiety Hypothyroidism Surgical History Surgical History History of D&C Family History Family History Other Patient denies significant medical history Social History Social History Smoking packs per day: 0.5 Smoking cigarettes per day: 10.0 Years smoked: 1 Smoking pack-years: 0.50 Smoking status: Former smoker Tobacco type: e-cigarettes/vaping Second hand tobacco smoke exposure: No Smoking end date: 10/02/20 Alcohol intake: current Drinks per week: 5 Substance use: never Substance use type: marijuana Do You Feel Safe in your Home?: Yes Lack of Transportation: No Lack of Food: Never True Current Housing: I Have Housing Concerned About Future Housing: No Difficulty Paying Gas/Electric Bills: No Difficulty Paying for Meds: No Currently Unemployed: No Education: High School Diploma/GED Difficulty w/ Childcare or Family Care: No Living arrangements: with family Additional living arrangements comments: [facility] Spiritual care concerns: No Meds Home Medications and Allergies Home Medications ?Medication ?Instructions ?Recorded ?Confirmed ?Type levothyroxine 88 mcg tablet 112 mcg PO QAM 12/01/20 05/04/25 History buspirone 5 mg tablet 5 mg PO BID 06/21/22 05/04/25 History sertraline 100 mg tablet 100 mg PO DAILY 12/18/23 05/04/25 History vlwqugty-yym-Sr-FA 1 mg tablet PO 05/04/25 History tablet Allergies Allergy/AdvReac Type Severity Reaction Status Date / Time No Known Allergies Allergy Verified 02/25/25 09:26 Vital Signs Vital Signs - 24 hr 05/16/25 09:46 05/16/25 09:54 05/16/25 10:00 Pulse Rate 110 H 100 Blood Pressure 127/86 130/60 Pulse Oximetry 99 98 Oxygen Delivery 05/16/25 10:01 05/16/25 10:08 05/16/25 10:13 Pulse Rate 85 Blood Pressure 115/74 Pulse Oximetry 98 98 Oxygen Delivery 05/16/25 10:16 05/16/25 10:18 05/16/25 10:23 Pulse Rate 96 Blood Pressure 130/79 Pulse Oximetry 98 98 Oxygen Delivery 05/16/25 10:28 05/16/25 10:31 05/16/25 10:36 Pulse Rate 97 Blood Pressure 113/65 Pulse Oximetry 99 99 98 Oxygen Delivery 05/16/25 10:41 05/16/25 10:46 05/16/25 10:51 Pulse Rate 80 Blood Pressure 126/70 Pulse Oximetry 97 98 98 Oxygen Delivery 05/16/25 10:56 05/16/25 11:01 05/16/25 11:06 Pulse Rate 80 Blood Pressure 127/75 Pulse Oximetry 99 99 98 Oxygen Delivery 05/16/25 11:11 05/16/25 11:16 05/16/25 11:21 Pulse Rate Blood Pressure Pulse Oximetry 100 100 99 Oxygen Delivery 05/16/25 11:26 05/16/25 11:31 05/16/25 11:36 Pulse Rate Blood Pressure Pulse Oximetry 100 100 100 Oxygen Delivery 05/16/25 11:41 05/16/25 11:42 05/16/25 11:43 Pulse Rate Blood Pressure Pulse Oximetry 100 100 100 Oxygen Delivery 05/16/25 11:43 05/16/25 11:46 05/16/25 11:51 Pulse Rate Blood Pressure Pulse Oximetry 100 100 100 Oxygen Delivery 05/16/25 11:56 05/16/25 11:59 05/16/25 12:01 Pulse Rate 89 Blood Pressure 128/67 Pulse Oximetry 100 99 Oxygen Delivery Room Air 05/16/25 12:06 05/16/25 12:11 05/16/25 12:16 Pulse Rate Blood Pressure Pulse Oximetry 99 100 100 Oxygen Delivery 05/16/25 12:24 05/16/25 12:29 05/16/25 12:34 Pulse Rate Blood Pressure Pulse Oximetry 100 100 98 Oxygen Delivery 05/16/25 12:39 05/16/25 12:44 05/16/25 12:45 Pulse Rate Blood Pressure Pulse Oximetry 99 99 100 Oxygen Delivery 05/16/25 12:50 Pulse Rate Blood Pressure Pulse Oximetry 99 Oxygen Delivery Exam Const: Orientation/consciousness: patient oriented x3 Other: Well-developed, well-nourished female in no acute distress. Neck: Thyroid: thyroid normal Lymphatic: no lymphadenopathy noted (in neck, axilla or inguinal nodes) Resp: Effort & Inspection: normal respiratory effort Auscultation: clear to auscultation bilaterally Cardio: Rate: regular rate Rhythm: regular rhythm Heart sounds: S1 normal heart sound present and S2 normal heart sound present GI: Other: ABD: Soft, nontender, nondistended, gravid. NST reactive. TOCO: contractions irregularly. No guarding or rebound tenderness. No hepatosplenomegaly. Bedside ultrasound by me confirms breech presentation. : General: Yes no CVA tenderness Other: RomPlus pos. Back/Spine/Pelvis: Back: no CVA tenderness Skin: General skin exam: normal color and no rashes or lesions noted Neuro: General: patient oriented x3 Extrem: Other: Extremities: nontender with no edema Psych: Mental Status: mental status grossly normal Affect: normal affect H&P: Results Labs Labs: Short CBC 05/16/25 Range/Units 11:05 WBC 17.8 H (4.5-10.0) K/mm3 Hgb 11.8 L (12.0-15.0) g/dL Hct 35.4 L (37.0-47.0) % Plt Count 317 D (150-375) k/mm3 Assessment and Plan Assessment and plan (1) SROM (spontaneous rupture of membranes): Status: Acute Assessment and Plan: A: IUP at 38 1/7 weeks with SROM, breech presentation. P: Offered primary . She understands risks of surgery to include risks of anesthesia, risks of pain, infection, bleeding, blood products, thromboembolic phenomena and damage to adjacent structures such as bowel, bladder, ureters, blood vessels and nerves. She understands all these risks and elects to proceed with surgery. (2) Breech presentation: Code(s): O32.1XX0 - Maternal care for breech presentation, not applicable or unspecified Status: Acute (3) Term : Code(s): Z34.90 - Encounter for supervision of normal , unspecified, unspecified trimester Status: Acute
--- NOTE | 2025-05-16 12:58 | WPDHPUPDATE1 ---
History and Physical Update Update Date/Time: 05/16/25 12:58 History and Physical has been reviewed, including an updated exam of the patient. There are NO changes in the patient's condition. Risks, benefits, and alternatives have been discussed and questions answered. Patient agrees to proceed with procedure.
--- NOTE | 2025-05-16 14:10 | W.PM.OBCSD ---
OB - Delivery Note Procedure Delivery date: 05/16/25 Pre-op diagnosis: Breech Presentation and Other (SROM) Post-op Diagnosis: Same Induction method: None Delivery monitor: External FHT and External Uterine Procedure Performed: Primary Surgeon: Mitesh López MD Anesthesia type: Spinal Description of Procedure/Findings: Findings: Male in double footling breech presentation. Normal-appearing uterus, tubes and ovaries. Techniques: The patient was taken to the operating room where she was prepared and draped in the usual sterile fashion in dorsal supine position with a leftward tilt. She received cefazolin preoperatively. Spinal anesthesia was found to be adequate. A Pfannenstiel skin incision was made and carried through to the underlying layer of the fascia. The fascia was incised in the midline and the incision was extended laterally. The fascia was dissected free of the underlying rectus muscles. The rectus muscles were in the midline. The peritoneum was identified, tented up and entered sharply. The peritoneal incision was extended superiorly and inferiorly with good visualization of the bladder. The bladder blade was placed. The vesicouterine peritoneum was identified, tented up and entered sharply. The incision was extended laterally and the bladder flap was developed. The bladder blade was replaced. The uterus was then incised sharply in a transverse fashion along the lower uterine segment. The incision was extended laterally. The infant's feet were grasped and the body delivered to the level of the scapulae. The arms were swept across the chest. The head did not immediately deliver, so the skin incision was extended. The head was gently flexed and then easily delivered. A nuchal cord was reduced. The nose and mouth were bulb suctioned. After a delay, the cord was clamped and cut. The infant was handed off the field. Cord blood was collected. The placenta was removed manually and was passed off the field. The uterus was exteriorized and cleared of all clots and debris. The uterine incision was reapproximated using 0 Monocryl in a running, locked fashion. Excellent hemostasis resulted as did excellent reapproximation of the normal anatomy. The uterus was returned the abdomen. The pelvis was irrigated copiously with warmed normal saline. Rigorous hemostasis was assured. The fascial layer was reapproximated using 0 Vicryl in a running fashion. The skin was closed with a running, subcuticular stitch of 4 0 Vicryl. Dermaflex was applied externally. Sponge, lap, needle and instrument counts were correct. The patient was taken to the recovery room in stable condition. The went to the nursery in stable condition. I was present and scrubbed the entire procedure. Specimen: Yes (Cord blood) Estimated Blood Loss: 680 Drains: Yes (Avendaño) Packing: No Pathology: Yes (Cord blood) Complications: None Condition: Stable Disposition: PACU Baby Date of : 05/16/25 Time of : 13:42 Gestational Age by Date: 38 Infant gender: Male Weight (pounds): 8 Weight (ounces): 1 presentation: other (Double footling breech) Placenta delivery description: Manual Removal and Normal Configuration Cord Vessel Description: 3 Vessels, Nuchal Cord (x1) and Delayed Cord Clamping score one minute: 8 score five minutes: 9
[2025-05-16 14:11] LABS: OBXCEM ROM Plus Positive (Negative)
--- NOTE | 2025-05-16 14:15 | P.DS_ITS ---
DS: Admitting Diagnosis Discharge Date 05/18/25 Admitting Diagnosis IUP at 38 1/7 weeks SROM Breech presentation DS: Discharge Diagnosis Discharge Diagnosis (1) Term delivered: Code(s): O80 - Encounter for full-term uncomplicated delivery Status: Acute (2) delivery delivered: Code(s): O82 - Encounter for delivery without indication Status: Acute OB - DS: Summary OB Procedures : NST and Ultrasound OB Procedures Intrapartum: OB Procedures: : None Time Spent with Patient Time attestation: Total time spent providing and/or coordinating discharge services: DS: Data Data Completed and Pending Labs on day of discharge: Labs from last 24 hours 05/16/25 05/16/25 11:05 09:32 WBC 17.8 H RBC 3.89 L Hgb 11.8 L Hct 35.4 L MCV 91.0 MCH 30.3 MCHC 33.3 RDW 13.2 Plt Count 317 D MPV 12.0 H Immature Gran % (Auto) 0.8 H Neut % (Auto) 71.1 Lymph % (Auto) 17.8 L [place] % (Auto) 6.1 Eos % (Auto) 4.0 Baso % (Auto) 0.2 Lymph # (Auto) 3.16 [place] # (Auto) 1.1 H Eos # (Auto) 0.7 H Baso # (Auto) 0.0 Abs Immat Gran (auto) 0.14 H Absolute Neuts (auto) 12.6 H Absolute Nucleated RBC 0.000 Nucleated RBC % 0.0 Membranes Rupture Rom plus positive Syphilis IgG/IgM Ab Non-reactive HIV 1&2 Ab/P24 Ag 4thGn Negative Blood Type A Positive Antibody Screen Negative Discharge Plan Discharge Attending physician on discharge: Gian Sierra Consulting providers: Gian Nance; Andria Brito Discharging Clinician: Gian Sierra Patient Disposition: Home Activity: may shower, may drive after 2 weeks and pelvic rest Diet: regular Wound Care Instructions: incision open to air Discharge Instructions: Call or return if temperature above 100.4? F, increased abdominal pain, increased vaginal bleeding or any new problems. Education: Mom and Baby Guide Given to: Mother Follow-Up: Call your delivering provider's office for an appointment to be seen in: 4 Weeks Mom and baby should come to the [facility] for the follow-up appointment. Appointment Date/Time: May 20, 2025 at 11:00 am What to expect at your follow-up visit: Blood Pressure Check Physical Assessment Call [phone] if you are unable to keep your appointment time. BREAST CARE: * Wear a snug supportive bra. * For engorgement discomfort: Breast Feeding: * Apply warm moist washcloths * Express milk as needed to relieve engorgement * Wear loose clothing Bottle Feeding: * May apply ice packs * For sore nipples: * Identify correct latch-on * Apply warm moist washcloths before and after nursing * Air dry nipples after nursing * May apply Lansinoh cream to nipples ABDOMINAL INCISION: * Allow incision to air dry * Do NOT use lotions for powders on your incision * When showering, allow soap and water to run over the incision, but do not wash incision EPISIOTOMY/PERINEAL CARE: * Until bleeding stops, use your aundrea bottle after urinating * Change your pad frequently throughout the day * You may take sitz baths several times a day (fill your bathtub with warm water and soak for 20 minutes.) Do NOT bathe in the water * No tub baths until seen by your physician - You may shower ACTIVITY: * Rest as much as possible. * Do not exercise or lift anything heavier than your baby (such as laundry or other children.) * Avoid stairs or driving as much as possible. * Do not put anything into the vagina. No douching, tampons, or sexual activity until seen by physician. NOTIFY PHYSICIAN IF YOU HAVE ANY QUESTIONS OR IF ANY OF THE FOLLOWING SYMPTOMS OCCUR: * If your episiotomy or incision becomes red, swollen, or more painful than what you have experienced in the hospital. * If your vaginal bleeding becomes foul smelling. * If your vaginal bleeding becomes more heavy than a period or if your bleeding changes from pink to bright red. However, you may pass an occasional walnut- sized clot once or twice for the first week . * If you experience a sharp, shooting pain in you calves. * If you discover a hard, reddened area on your breast or if you experience flu- like symptoms. DIET: * Eat regular, well-balanced meals. * Drink plenty of fluids daily. If , drink to thirst. Patient Language: Tristanian Stand Alone Forms: General Discharge Information Follow-up/Referrals: Gian Sierra MD [Physician] - 4 Weeks Discharge Medications: New hydrocodone-acetaminophen 5-325 mg tablet 1 - 2 tablet PO Q6H PRN (Reason: pain) Qty: 30 0RF ibuprofen 600 mg tablet 600 mg PO Q6H PRN (Reason: cramps) Qty: 30 0RF Continued ksiryhnf-qbw-Ob-FA 1 mg tablet PO levothyroxine 88 mcg tablet 112 mcg PO QAM buspirone 5 mg tablet 5 mg PO BID sertraline 100 mg tablet 100 mg PO DAILY Date of admission: 05/16/25 09:11 Primary Care Provider: Lencho,Laurel Junior Admitting Provider: Mitesh López Attending physician on admission: Gian Sierra Condition: Stable
[2025-05-16] MEDS: ePHEDrine sulfate INJ 50 MG/ML AMPUL IV PUSH (15:28)
[2025-05-16 15:37] LABS: Amphetamine Screen Urine Negative (Negative); Barbiturate Screen Urine Negative (Negative); Benzodiazepines Screen Urine Negative (Negative); Cannabinoid Screen Urine Positive (Negative); Cocaine Screen Urine Negative (Negative); Methadone Screen Urine Negative (Negative); Opiate Screen Urine Negative (Negative); Phencyclidine Screen Urine Negative (Negative)
[2025-05-16 15:53] LABS: Glucose Point of Care 67 mg/dl (65-105)
[2025-05-16 15:53] LABS: Glucose Point of Care 81 mg/dl (65-105)
[2025-05-16] MEDS: ACETAMINOPHEN 325 MG TABLET 650 MG PO (16:02)
[2025-05-16] MEDS: OXYTOCIN 30 UNITS/NS 500 ML 30 UNITS/500 ML BAG 125 UNITS IV CONT (16:44)
[2025-05-16] MEDS: KETOROLAC 15 MG/ML VIAL (*BKC) IV PUSH ×2 (16:45→22:23)
--- NOTE | 2025-05-16 17:17 | OBPPTRN ---
Patient transferred to post room # 288 via stretcher. Support person present. Oriented to unit, room, information board, rooming in, admission packet and security measures. Patient verbalizes understanding.
[2025-05-16] MEDS: oxyCODONE HCL (*CRX) 5 MG TAB IR PO ×2 (17:45→19:57)
[2025-05-16] MEDS: LIDOCAINE 5% PATCH 1 PATCH TRANSDERM (17:46)
[2025-05-16] MEDS: SIMETHICONE 80 MG TAB.CHEW PO (19:44)
[2025-05-16] MEDS: DOCUSATE SODIUM 100 MG CAPSULE PO (19:45)
[2025-05-16] MEDS: busPIRone HCL 5 MG TABLET PO (19:45)
[2025-05-16] MEDS: KCL 20 MEQ/D5/0.45% SOD CHL 1,000 ML 125 ML IV CONT (20:44)
[2025-05-17] MEDS: oxyCODONE HCL (*CRX) 5 MG TAB IR 10 MG PO ×3 (02:37→21:37)
[2025-05-17] MEDS: KETOROLAC 15 MG/ML VIAL (*BKC) IV PUSH (04:26)
[2025-05-17] MEDS: ACETAMINOPHEN 500 MG TABLET 1000 MG PO ×3 (04:27→20:06)
[2025-05-17] MEDS: LEVOTHYROXINE SODIUM 112 MCG TABLET PO (06:36)
[2025-05-17 06:38] LABS: Basophils Percent Auto 0.3 % (0.2-1.2); Eosinophils Absolute Auto 0.4 K/mm3 (0-0.3); Eosinophils Percent Auto 3.1 % (0-4.4); Hematocrit 29.9 % (37.0-47.0); Hemoglobin 9.9 g/dL (12.0-15.0); Immature Granulocyte Absolute 0.06 K/mm3 (0.00-0.031); Immature Granulocyte Percent A 0.4 % (0-0.5); Lymphocytes Absolute Auto 2.71 K/mm3 (0.9-3.2); Lymphocytes Percent Auto 18.9 % (18.3-44.2); Mean Corpuscular HGB Conc 33.1 g/dl (32-36); Mean Corpuscular Hemoglobin 30.7 pg (26-34); Mean Corpuscular Volume 92.6 fl (80-100); Mean Platelet Volume 11.5 fl (7.4-10.4); Monocytes Absolute Auto 1.2 K/mm3 (0.1-0.6); Monocytes Percent Auto 8.2 % (2.6-8.5); Neutrophils Absolute Auto 9.9 K/mm3 (1.3-6.7); Neutrophils Percent Auto 69.1 % (45.5-73.1); Platelet Count Result 228 k/mm3 (150-375); Red Blood Count 3.23 M/mm3 (4.2-5.4); Red Cell Distribution Width 13.2 % (11.5-14.5); White Blood Count 14.4 K/mm3 (4.5-10.0)
[2025-05-17 08:35] VITALS: BP 118/71; PULSE 65; RESP 16; TEMP 36.3; O2SAT 99
[2025-05-17] MEDS: SERTRALINE HCL 50 MG TABLET 100 MG PO (08:41)
[2025-05-17] MEDS: busPIRone HCL 5 MG TABLET PO ×2 (08:41→16:51)
[2025-05-17] MEDS: SIMETHICONE 80 MG TAB.CHEW PO ×3 (08:41→16:51)
[2025-05-17] MEDS: DOCUSATE SODIUM 100 MG CAPSULE PO ×2 (08:41→16:51)
--- NOTE | 2025-05-17 10:17 | WPDANLDPN2 ---
Anes-Prog Note L&D Date/Time: 05/17/25 10:17 Comfortable throughout: section Neuraxial method: spinal Neuro status: Neuro function grossly intact. Cardiovascular status: normal Respiratory status: normal Airway patency: baseline Mental status: baseline Vital Signs: Last Vital Signs Temp 36.3 C L 05/17/25 08:35 Pulse 65 05/17/25 08:35 Resp 16 05/17/25 08:35 BP 118/71 05/17/25 08:35 Pulse Ox 99 05/17/25 08:35 O2 Del Method Room Air 05/16/25 19:45 Pain score (VAS): 2 I/O: Intake & Output 05/16/25 05/17/25 05/17/25 23:59 07:59 15:59 Intake Total 650 1550 Output Total 2625 1950 Balance -7019 -400 Patient feedback: Patient satisfied with anesthetic care.
[2025-05-17] MEDS: IBUPROFEN 600 MG TABLET PO ×2 (10:41→20:06)
[2025-05-17] MEDS: POLYSACCHARIDE IRON COMPLEX 150 MG CAPSULE PO ×2 (10:41→16:51)
--- NOTE | 2025-05-17 11:08 | PCCCNOTE ---
Care Coordination. High risk Substance use screening received for pt. Met with pt. and FOB at bedside. Pt. was positive for marijuana and baby was not tested. Pt. reports only uses marijuana occasionally. She did not want any resource information surrounding this. She reports this is second baby and they have all necessary baby care items. She reports does not need WIC services and did not want a list of center resources. Pt. plans to return home with FOB and children. She reports having family support. Spoke with Iggy Mullins from [facility] Hotline and he will document pt.'s situation as information only (Intake ID# [id number]).
[2025-05-17 12:33] VITALS: BP 116/74; PULSE 63; RESP 16; TEMP 36.4; O2SAT 100
--- NOTE | 2025-05-17 12:44 | P.PNOB_ITS ---
OB - PN: Subj Subjective Date/time seen: 05/17/25 12:44 Narrative: Pain OK. Tolerating diet. Baby in special care nursery. OB - PN: Obj Data Labs 05/17/25 06:31 Labs: Laboratory Results - last 24 hr 05/16/25 05/16/25 05/16/25 09:32 15:15 15:29 WBC RBC Hgb Hct MCV MCH MCHC RDW Plt Count MPV Immature Gran % (Auto) Neut % (Auto) Lymph % (Auto) [place] % (Auto) Eos % (Auto) Baso % (Auto) Lymph # (Auto) [place] # (Auto) Eos # (Auto) Baso # (Auto) Abs Immat Gran (auto) Absolute Neuts (auto) Absolute Nucleated RBC Nucleated RBC % POC Capillary Glucose 67 Membranes Rupture Rom plus positive Urine Opiates Screen Negative Urine Methadone Screen Negative Ur Barbiturates Screen Negative Ur Phencyclidine Scrn Negative Ur Amphetamine Screen Negative U Benzodiazepines Scrn Negative Urine Cocaine Screen Negative U Cannabinoids Screen Positive A 05/16/25 05/17/25 15:47 06:31 WBC 14.4 H RBC 3.23 L Hgb 9.9 L Hct 29.9 L MCV 92.6 MCH 30.7 MCHC 33.1 RDW 13.2 Plt Count 228 MPV 11.5 H Immature Gran % (Auto) 0.4 Neut % (Auto) 69.1 Lymph % (Auto) 18.9 [place] % (Auto) 8.2 Eos % (Auto) 3.1 Baso % (Auto) 0.3 Lymph # (Auto) 2.71 [place] # (Auto) 1.2 H Eos # (Auto) 0.4 H Baso # (Auto) 0.0 Abs Immat Gran (auto) 0.06 H Absolute Neuts (auto) 9.9 H Absolute Nucleated RBC 0.000 Nucleated RBC % 0.0 POC Capillary Glucose 81 Membranes Rupture Urine Opiates Screen Urine Methadone Screen Ur Barbiturates Screen Ur Phencyclidine Scrn Ur Amphetamine Screen U Benzodiazepines Scrn Urine Cocaine Screen U Cannabinoids Screen OB - PN A/P Assessment and Plan (1) delivery delivered: Code(s): O82 - Encounter for delivery without indication Status: Acute Plan day: 1 Comments: A: POD#1, doing well. P: Routine care. Exam 2 Narrative: AVSS I/O OK ABD soft, nontender, fundus firm. Incision c/d/i. EXT nontender
[2025-05-17] MEDS: ALPRAZolam (*CRX) 0.5 MG TABLET PO (15:38)
[2025-05-17 19:59] VITALS: BP 100/50; PULSE 61; RESP 16; TEMP 36.4; O2SAT 100
[2025-05-17] MEDS: ZOLPIDEM TARTRATE (*CRX) 5 MG TABLET PO (23:28)
[2025-05-18 01:30] VITALS: BP 97/56; PULSE 64; RESP 16; TEMP 36.2; O2SAT 99
[2025-05-18] MEDS: ACETAMINOPHEN 500 MG TABLET 1000 MG PO ×2 (02:23→09:17)
[2025-05-18] MEDS: IBUPROFEN 600 MG TABLET PO ×2 (02:23→09:17)
--- NOTE | 2025-05-18 06:20 | P.PNOB_ITS ---
OB - PN: Subj Subjective Date/time seen: 05/18/25 06:20 Patient comments: no complaints, pain well controlled, incisional pain, tolerating diet and flatus present baby status: other (level 2) OB - PN: Obj Data Labs 05/17/25 06:31 Labs: Laboratory Results - last 24 hr 05/17/25 06:31 WBC 14.4 H RBC 3.23 L Hgb 9.9 L Hct 29.9 L MCV 92.6 MCH 30.7 MCHC 33.1 RDW 13.2 Plt Count 228 MPV 11.5 H Immature Gran % (Auto) 0.4 Neut % (Auto) 69.1 Lymph % (Auto) 18.9 [place] % (Auto) 8.2 Eos % (Auto) 3.1 Baso % (Auto) 0.3 Lymph # (Auto) 2.71 [place] # (Auto) 1.2 H Eos # (Auto) 0.4 H Baso # (Auto) 0.0 Abs Immat Gran (auto) 0.06 H Absolute Neuts (auto) 9.9 H Absolute Nucleated RBC 0.000 Nucleated RBC % 0.0 OB - PN A/P Assessment and Plan (1) Term : Code(s): Z34.90 - Encounter for supervision of normal , unspecified, unspecified trimester Status: Acute (2) Term delivered: Code(s): O80 - Encounter for full-term uncomplicated delivery Status: Acute (3) delivery delivered: Code(s): O82 - Encounter for delivery without indication Status: Acute Plan routine care Time Spent With Patient Time: Total time spent is greater than 50% in coordination of care (as documented) at patient's floor/unit and/or counseling patient: Review of Systems 2 Review of Systems: All systems reviewed & are unremarkable except as noted in HPI and below Exam 2 Const: General: cooperative, healthy appearing and comfortable Nutritional Appearance: average body habitus Orientation/consciousness: oriented to person, oriented to place and oriented to time HENMT: Head: normal to inspection Resp: Effort & Inspection: normal respiratory effort Cardio: Rate: regular rate Rhythm: regular rhythm Heart sounds: S1 normal heart sound present and S2 normal heart sound present GI: Inspection: normal to inspection and incision (cdi)
[2025-05-18] MEDS: LEVOTHYROXINE SODIUM 112 MCG TABLET PO (06:47)
[2025-05-18] MEDS: MULTIVIT/MIN/PREN/FOL AC/IRON TABLET 1 TAB PO (06:47)
[2025-05-18] MEDS: SIMETHICONE 80 MG TAB.CHEW PO ×2 (06:48→14:30)
[2025-05-18] MEDS: DOCUSATE SODIUM 100 MG CAPSULE PO (06:48)
[2025-05-18] MEDS: oxyCODONE HCL (*CRX) 5 MG TAB IR 10 MG PO (06:56)
[2025-05-18] MEDS: busPIRone HCL 5 MG TABLET PO (06:57)
[2025-05-18] MEDS: SERTRALINE HCL 50 MG TABLET 150 MG PO (06:57)
[2025-05-18 07:55] VITALS: BP 99/64; PULSE 58; RESP 18; TEMP 36.6; O2SAT 97
[2025-05-18] MEDS: ALPRAZolam (*CRX) 0.5 MG TABLET PO (14:30)
[2025-05-19 23:58] LABS: Herpes Simplex Type 1 DNA PCR Not Detected (Not Detected); Herpes Simplex Type 2 DNA PCR Not Detected (Not Detected)
== END 2025-05-18 15:40 | disposition home or self-care (01) | DRG 788 ==
LOC: ANHLDR 16:38 → ANHOB2 19:01
PROVIDERS: Admitting Provider Obstetrics & Gynecology; PCP Family Medicine; Visit Provider Obstetrics & Gynecology
PROC: 10D00Z1 Extraction of Products of Conception, Low, Open Approach (ICD-10-PCS; CPT 59514; principal; 2025-05-16 12:30)
DX: O32.8XX0 Maternal care for other malpresentation of fetus, not applicable or unspecified (principal); O77.0 Labor and delivery complicated by meconium in amniotic fluid; O99.344 Other mental disorders complicating childbirth; F41.9 Anxiety disorder, unspecified; O99.284 Endocrine, nutritional and metabolic diseases complicating childbirth; E03.9 Hypothyroidism, unspecified; O69.81X0 Labor and delivery complicated by cord around neck, without compression, not applicable or unspecified; Z3A.38 38 weeks gestation of pregnancy; Z37.0 Single live birth; Z87.891 Personal history of nicotine dependence
CPT/HCPCS: 36415; 80307; 82948; 84112; 85025; 86593; 86703; 86850; 86900; 86901; 87529; A9270; G0432; J0456; J1885; J2250; J2274; J2590; J3480; J7120